=== PATIENT | female | born 1945 | race Caucasian/White ===

== ENCOUNTER 2020-07-15 15:29 | Inpatient (IN) | payer MEDICARE, BC ==
[2020-07-15] MEDS ORDERED: SODIUM CHLORIDE 0.9% 1,000 ML IV STA (15:59)
[2020-07-15] MEDS ORDERED: SODIUM CHLORIDE 0.9% 500 ML 500 ML IV STA (15:59)
[2020-07-15] MEDS ORDERED: ACETAMINOPHEN TAB 500 MG TAB PO STA (15:59)
--- NOTE | 2020-07-15 16:04 | ED ---
General Adult HPI - General Chief complaint: Weakness Stated complaint: Weakness Time Seen by Provider: 07/15/20 15:53 Source: patient, EMS, RN notes reviewed, old records reviewed Mode of arrival: EMS Limitations: no limitations - History of Present Illness Initial comments: 74-year-old female presenting for evaluation of cough, fever, increased weakne ss. Patient was noted to be hypoxic by EMS at 89%. She is 8 days postop right hip replacement at an outside facility. She began having worsening dyspnea and cough over the past several days. She does report subjective fever at home. Denies lower extremity swelling. She denies any pain swelling or erythema at the incision site of the right hip. - Related Data Allergies Allergy/AdvReac Type Severity Reaction Status Date / Time ciprofloxacin [From Cipro] Allergy Unknown Verified 07/15/20 15:38 clarithromycin [From Biaxin] Allergy Unknown Verified 07/15/20 15:38 ibuprofen [From Motrin] Allergy Unknown Verified 07/15/20 15:38 Sulfa (Sulfonamide Allergy Unknown Verified 07/15/20 15:38 Antibiotics) Review of Systems ROS Statement: Those systems with pertinent positive or pertinent negative responses have been documented in the HPI. ROS Other: All systems not noted in ROS Statement are negative. Past Medical History Past Medical History: Hyperlipidemia, Hypertension History of Any Multi-Drug Resistant Organisms: None Reported Past Surgical History: Appendectomy, Orthopedic Surgery Additional Past Surgical History / Comment(s): gastric bypass Past Psychological History: Depression Smoking Status: Former smoker Past Alcohol Use History: Rare Past Drug Use History: None Reported General Exam Limitations: no limitations General appearance: alert, in no apparent distress Head exam: Present: atraumatic, normocephalic Eye exam: Present: normal appearance, PERRL ENT exam: Present: normal exam Neck exam: Present: normal inspection. Absent: tenderness, meningismus Respiratory exam: Present: respiratory distress, decreased breath sounds Cardiovascular Exam: Present: regular rate, normal rhythm GI/Abdominal exam: Present: soft. Absent: distended, tenderness, guarding Extremities exam: Present: other (Right hip dressing is clean dry and intact, no surrounding erythema, no tenderness, no purulent drainage). Absent: pedal edema, calf tenderness Neurological exam: Present: alert, oriented X3, CN II-XII intact. Absent: motor sensory deficit Psychiatric exam: Present: normal affect, normal mood Skin exam: Present: warm, dry, intact. Absent: cyanosis, diaphoretic Course Vital Signs 07/15/20 07/15/20 07/15/20 15:38 15:49 17:00 Temperature 100.6 F H Pulse Rate 92 84 Respiratory 22 18 Rate Blood Pressure 127/71 129/67 O2 Sat by Pulse 89 L 95 98 Oximetry 07/15/20 18:00 Temperature 98.9 F Pulse Rate 81 Respiratory 18 Rate Blood Pressure 119/67 O2 Sat by Pulse 94 L Oximetry EKG Findings - EKG Comments: EKG Findings:: EKG: Sinus rhythm with PAC, no ST segment elevation, there is additionally PVC rate of 90, NJ interval 150, QRS duration 82, QTC [address] segment elevation. Medical Decision Making - Medical Decision Making 74-year-old female with cough, fever, generalized weakness, chest x-ray showing a right apical pneumonia. Patient has mildly elevated white blood cell count at 12.1, electrolytes are within normal limits. She has urinalysis which shows 30 white blood cells. Suspect pneumonia or urinary tract infection. There is no signs of surgical site infection. She started on antibiotics including ceftriaxone and azithromycin. Additionally a coronavirus test will be sent. Patient will be admitted for IV antibiotics, case is discussed with Dr. jerez who will admit. - Lab Data Result diagrams: 07/15/20 16:18 07/15/20 16:18 Lab Results 07/15/20 07/15/20 07/15/20 Range/Units 16:18 16:18 16:18 WBC 12.1 H (3.8-10.6) k/uL RBC 3.54 L (3.80-5.40) m/uL Hgb 10.1 L (11.4-16.0) gm/dL Hct 32.2 L (34.0-46.0) % MCV 90.9 (80.0-100.0) fL MCH 28.6 (25.0-35.0) pg MCHC 31.5 (31.0-37.0) g/dL RDW 13.3 (11.5-15.5) % Plt Count 451 H (150-450) k/uL Neutrophils % 76 % Lymphocytes % 13 % Monocytes % 6 % Eosinophils % 5 % Basophils % 0 % Neutrophils # 9.2 H (1.3-7.7) k/uL Lymphocytes # 1.5 (1.0-4.8) k/uL Monocytes # 0.7 (0-1.0) k/uL Eosinophils # 0.6 (0-0.7) k/uL Basophils # 0.0 (0-0.2) k/uL PT 9.9 (9.0-12.0) sec INR 0.9 (<1.2) APTT 29.5 (22.0-30.0) sec Sodium 136 L (137-145) mmol/L Potassium 4.1 (3.5-5.1) mmol/L Chloride 104 (98-107) mmol/L Carbon Dioxide 27 (22-30) mmol/L Anion Gap 5 mmol/L BUN 16 (7-17) mg/dL Creatinine 0.72 (0.52-1.04) mg/dL Est GFR (CKD-EPI)AfAm >90 (>60 ml/min/1.73 sqM) Est GFR (CKD-EPI)NonAf 84 (>60 ml/min/1.73 sqM) Glucose 95 (74-99) mg/dL Plasma Lactic Acid Stephan (0.7-2.0) mmol/L Calcium 8.4 (8.4-10.2) mg/dL Magnesium 1.5 L (1.6-2.3) mg/dL Total Bilirubin 0.9 (0.2-1.3) mg/dL AST 29 (14-36) U/L ALT 15 (4-34) U/L Alkaline Phosphatase 137 H (38-126) U/L Troponin I (0.000-0.034) ng/mL Total Protein 5.6 L (6.3-8.2) g/dL Albumin 2.7 L (3.5-5.0) g/dL Urine Color Urine Appearance (Clear) Urine pH (5.0-8.0) Ur Specific Eden (1.001-1.035) Urine Protein (Negative) Urine Glucose (UA) (Negative) Urine Ketones (Negative) Urine Blood (Negative) Urine Nitrite (Negative) Urine Bilirubin (Negative) Urine Urobilinogen (<2.0) mg/dL Ur Leukocyte Esterase (Negative) Urine RBC (0-5) /hpf Urine WBC (0-5) /hpf Ur Squamous Epith Cells (0-4) /hpf Urine Bacteria (None) /hpf Urine Mucus (None) /hpf 07/15/20 07/15/20 07/15/20 Range/Units 16:18 16:18 16:56 WBC (3.8-10.6) k/uL RBC (3.80-5.40) m/uL Hgb (11.4-16.0) gm/dL Hct (34.0-46.0) % MCV (80.0-100.0) fL MCH (25.0-35.0) pg MCHC (31.0-37.0) g/dL RDW (11.5-15.5) % Plt Count (150-450) k/uL Neutrophils % % Lymphocytes % % Monocytes % % Eosinophils % % Basophils % % Neutrophils # (1.3-7.7) k/uL Lymphocytes # (1.0-4.8) k/uL Monocytes # (0-1.0) k/uL Eosinophils # (0-0.7) k/uL Basophils # (0-0.2) k/uL PT (9.0-12.0) sec INR (<1.2) APTT (22.0-30.0) sec Sodium (137-145) mmol/L Potassium (3.5-5.1) mmol/L Chloride (98-107) mmol/L Carbon Dioxide (22-30) mmol/L Anion Gap mmol/L BUN (7-17) mg/dL Creatinine (0.52-1.04) mg/dL Est GFR (CKD-EPI)AfAm (>60 ml/min/1.73 sqM) Est GFR (CKD-EPI)NonAf (>60 ml/min/1.73 sqM) Glucose (74-99) mg/dL Plasma Lactic Acid Stephan 1.0 (0.7-2.0) mmol/L Calcium (8.4-10.2) mg/dL Magnesium (1.6-2.3) mg/dL Total Bilirubin (0.2-1.3) mg/dL AST (14-36) U/L ALT (4-34) U/L Alkaline Phosphatase (38-126) U/L Troponin I <0.012 (0.000-0.034) ng/mL Total Protein (6.3-8.2) g/dL Albumin (3.5-5.0) g/dL Urine Color Yellow Urine Appearance Cloudy H (Clear) Urine pH 5.5 (5.0-8.0) Ur Specific Eden 1.027 (1.001-1.035) Urine Protein Trace H (Negative) Urine Glucose (UA) Negative (Negative) Urine Ketones Negative (Negative) Urine Blood Small H (Negative) Urine Nitrite Positive H (Negative) Urine Bilirubin Negative (Negative) Urine Urobilinogen 3.0 (<2.0) mg/dL Ur Leukocyte Esterase Large H (Negative) Urine RBC 1 (0-5) /hpf Urine WBC 30 H (0-5) /hpf Ur Squamous Epith Cells 8 H (0-4) /hpf Urine Bacteria Many H (None) /hpf Urine Mucus Rare H (None) /hpf Disposition Clinical Impression: Pneumonia Disposition[facility] Condition: Stable Is patient prescribed a controlled substance at d/c from ED?: No Referrals: Nonstaff,Physician [REFERRING] - 1-2 days Decision to Admit Reason: Admit from EC Decision Date: 07/15/20 Decision Time: 18:35
[2020-07-15 16:35] LABS: Basophils % (A) 0 %; Eosinophils # (A) 0.6 k/uL (0-0.7); Eosinophils % (A) 5 %; HCT 32.2 % (34.0-46.0); HGB 10.1 gm/dL (11.4-16.0); Lymphocytes # (A) 1.5 k/uL (1.0-4.8); Lymphocytes % (A) 13 %; MCH 28.6 pg (25.0-35.0); MCHC 31.5 g/dL (31.0-37.0); MCV 90.9 fL (80.0-100.0); Mean Platelet Volume 7.3; Monocytes # (A) 0.7 k/uL (0-1.0); Monocytes % (A) 6 %; Neutrophils # (A) 9.2 k/uL (1.3-7.7); Neutrophils % (A) 76 %; Platelet Count 451 k/uL (150-450); RBC 3.54 m/uL (3.80-5.40); RDW 13.3 % (11.5-15.5); WBC 12.1 k/uL (3.8-10.6)
--- NOTE | 2020-07-15 16:44 | XR ---
EXAMINATION TYPE: XR chest 2V DATE OF EXAM: 07/15/2020 COMPARISON: None INDICATION: Weakness short of breath TECHNIQUE: Frontal and lateral views of the chest are obtained. FINDINGS: The heart size is normal. The pulmonary vasculature is normal. There is a right apical infiltrate. Correlate for pneumonia. Consider atypical pneumonia. Follow-up i s recommended.. IMPRESSION: 1. Right apical infiltrate. Correlate for pneumonia and atypical pneumonia.
[2020-07-15 16:45] LABS: ALT 15 U/L (4-34); AST 29 U/L (14-36); African American GFR (CKD) >90 (>60 ml/min/1.73 sqM); Albumin 2.7 g/dL (3.5-5.0); Alkaline Phosphatase 137 U/L (38-126); Anion Gap 5 mmol/L; Blood Urea Nitrogen 16 mg/dL (7-17); Calcium 8.4 mg/dL (8.4-10.2); Carbon Dioxide 27 mmol/L (22-30); Chloride 104 mmol/L (98-107); Glucose 95 mg/dL (74-99); Magnesium 1.5 mg/dL (1.6-2.3); Non-African American GFR(CKD) 84 (>60 ml/min/1.73 sqM); Potassium 4.1 mmol/L (3.5-5.1); Sodium 136 mmol/L (137-145); Total Bilirubin 0.9 mg/dL (0.2-1.3); Total Protein 5.6 g/dL (6.3-8.2)
[2020-07-15 16:49] LABS: INR 0.9 (<1.2); Partial Thromboplastin Time 29.5 sec (22.0-30.0); Prothrombin Time 9.9 sec (9.0-12.0)
[2020-07-15 17:06] LABS: Appearance,Urine Cloudy (Clear); Bacteria,Urine Many /hpf; Bilirubin,Urine Negative (Negative); Blood,Urine Small (Negative); Color,Urine Yellow; Glucose,Urine (UA) Negative (Negative); Ketones,Urine Negative (Negative); Leukocyte Esterase,Urine Large (Negative); Mucus,Urine Rare /hpf; Nitrite,Urine Positive (Negative); PH, Urine 5.5 (5.0-8.0); Protein,Urine Trace (Negative); RBC,Urine 1 /hpf (0-5); Specific Gravity,Urine 1.027 (1.001-1.035); Squamous Epithelial Cell,Urine 8 /hpf (0-4); WBC,Urine 30 /hpf (0-5)
[2020-07-15] MEDS ORDERED: AZITHROMYCIN 500 MG in SODIUM CHLORIDE 0.9% 250 ML IVPB STA (17:14)
[2020-07-15] MEDS ORDERED: cefTRIAXone IN SWFI 1,000 MG/10 ML SYRINGE IVP STA (17:14)
[2020-07-15] MEDS ORDERED: HYDROcodone/APAP 10-325MG 1 EACH TAB PO STA (17:59)
--- NOTE | 2020-07-15 18:13 | CT ---
EXAMINATION TYPE: CT angio chest DATE OF EXAM: 07/15/2020 COMPARISON: None HISTORY: Difficulty breathing. CT DLP: 584.7 mGycm Automated exposure control for dose reduction was used. CONTRAST: Performed with IV Contrast, patient injected with 100 mL of Isovue 370. There are 3-D post processed images. There is some patchy groundglass interstitial infiltrates in the upper lobes bilaterally. There is no evidence of a pulmonary mass. There is no pleural effusion. Heart is borderline enlarged. There is n o pericardial effusion. There are no hilar masses. There is no mediastinal adenopathy. There is mild emphysematous changes in the upper lobes. There are surgical clips apparently from gastric bariatric surgery. I see no filling defects in the pulmonary arteries. Thoracic aorta is intact without evidence of aneu rysm or dissection. The bony thorax is intact. There is spurring of the endplates in the mid thoracic spine and 20% mild wedging of one mid thoracic vertebra that appears old. IMPRESSION: No evidence of pulmonary embolism. COPD and bilateral upper lobe patchy groundglass pulmonary interstitial infiltrates. No suspicious pu lmonary mass. Infiltrates consistent with inflammatory disease.
[2020-07-15] MEDS ORDERED: ACETAMINOPHEN TAB 325 MG TAB PO PRN (18:28)
[2020-07-15] MEDS ORDERED: NALOXONE 0.4 MG/ML 1 ML VIAL IV PRN (18:28)
[2020-07-15] MEDS ORDERED: MELATONIN 5 MG TABLET PO PRN (22:00)
[2020-07-15] MEDS ORDERED: SENNOSIDES 8.6 MG TAB PO PRN (22:00)
[2020-07-15] MEDS: FLUoxetine HCL 20 MG CAP PO SCH (22:14)
[2020-07-15] MEDS: ATORVASTATIN 20 MG TAB PO SCH (22:14)
[2020-07-15] MEDS: GABAPENTIN 300 MG CAP PO SCH (22:14)
[2020-07-15] MEDS: APIXABAN 2.5 MG TABLET PO SCH (22:14)
[2020-07-15] MEDS: METOPROLOL TARTRATE 50 MG TAB PO SCH (22:14)
[2020-07-16] MEDS ORDERED: ONDANSETRON 4 MG/2 ML VIAL IVP PRN
[2020-07-16] MEDS: HYDROcodone/APAP 10-325MG 1 EACH TAB PO PRN ×3 (04:30→20:55)
[2020-07-16] MEDS: GABAPENTIN 300 MG CAP PO SCH ×2 (07:40→21:04)
[2020-07-16] MEDS: CHOLECALCIFEROL 1,000 UNIT TAB PO SCH (07:40)
[2020-07-16] MEDS: PANTOPRAZOLE 40 MG TABLET PO SCH (07:41)
[2020-07-16] MEDS: FLUoxetine HCL 20 MG CAP PO SCH ×2 (07:41→21:04)
[2020-07-16] MEDS: APIXABAN 2.5 MG TABLET PO SCH ×2 (07:41→20:55)
[2020-07-16] MEDS: lisinopriL 20 MG TAB PO SCH (07:41)
[2020-07-16] MEDS: METOPROLOL TARTRATE 50 MG TAB PO SCH ×2 (07:41→20:55)
[2020-07-16] MEDS: amLODIPine 5 MG TAB PO SCH (07:41)
[2020-07-16] MEDS: MULTIVITAMINS, THERA 1 EACH TAB PO SCH (07:42)
[2020-07-16] MEDS ORDERED: polyethylene glycoL 3350 17 GM POWD.PACK PO PRN (09:00)
[2020-07-16] MEDS ORDERED: DOCUSATE 100 MG CAP PO PRN (09:00)
[2020-07-16 11:33] LABS: Basophils % (A) 0 %; Eosinophils # (A) 0.5 k/uL (0-0.7); Eosinophils % (A) 7 %; HCT 29.2 % (34.0-46.0); HGB 9.1 gm/dL (11.4-16.0); Hypochromasia Slight; Lymphocytes # (A) 1.2 k/uL (1.0-4.8); Lymphocytes % (A) 16 %; MCHC 31.3 g/dL (31.0-37.0); MCV 92.6 fL (80.0-100.0); Mean Platelet Volume 6.9; Monocytes # (A) 0.4 k/uL (0-1.0); Monocytes % (A) 6 %; Neutrophils # (A) 5.3 k/uL (1.3-7.7); Neutrophils % (A) 70 %; Platelet Count 412 k/uL (150-450); RBC 3.15 m/uL (3.80-5.40); RDW 13.3 % (11.5-15.5); WBC 7.6 k/uL (3.8-10.6)
[2020-07-16 12:08] LABS: D-Dimer 1.28 mg/L FEU (<0.60)
[2020-07-16] MEDS ORDERED: IPRATROPIUM-ALBUTEROL 3 ML NEB INHALATION PRN (13:27)
[2020-07-16] MEDS: predniSONE 20 MG TAB PO SCH (13:48)
[2020-07-16] MEDS ORDERED: FUROSEMIDE 10 MG/ML 4 ML VIAL IV STA (14:18)
--- NOTE | 2020-07-16 14:20 | P.CNPUL ---
History of Present Illness Consult date: 07/16/20 Requesting physician: Geoffrey Jordan Reason for consult: dyspnea, cough, hypoxemia (hypoxic respiratory failure), pneumonia, abnormal CXR/CT Chief complaint: Cough, fever, weakness, and hypoxemia History of present illness: 74-year-old white female patient with a recent history of right hip replacement at [facility] who is staying in this area with her sister for recovery. Patient has a past medical history significant for hypertension, hyperlipidemia, she is a former smoker, she has had a gastric bypass surgery in the past, and history of depression. She presented to the emergency department on 07/15/2020 evaluation of fever, cough, increased weakness, EMS transported the patient to the hospital and she was noted to be hypoxic with a pulse ox of 89% on room air. Patient's onset of symptoms was several days ago, patient denies any lower extremity swelling, or pain in the calves. Her right hip incision is clean dry and intact, without evidence of swelling or erythema. Chest x-ray showed right apical infiltrate. Labs did not show any significant leukocytosis, with white blood cell, only at 12.1, hemoglobin is 10.1, d-dimer was 1.8, INR 0.9, electrolytes and renal profile were unremarkable, troponin was negative at less than 0.012, LFTs are within normal limits, except for alk phos at 137, urinalysis showed nitrites, small amount of blood, large amount of leuk trase, and increased white blood cell count and many bacteria consistent with urinary tract infection, proBNP was 3640. CTA chest showed no evidence of pulmonary embolism, bilateral upper lobe patchy groundglass pulmonary interstitial infiltrates, no suspicious pulmonary mass. COVID 19 PCR was negative. EKG showed sinus rhythm with PACs with apparent conduction, and nonspecific ST and T-wave abnormality. Patient was started on empiric antibiotics in the form of azithromycin and Rocephin, patient is on oral anticoagulation form of Eliquis possibly following her recent right hip surgery. She is awake, appears to be in no acute distress, afebrile, and 4 L of oxygen a pulse ox 96% Review of Systems All systems: negative Constitutional: Reports weakness, Denies chills, Denies fever Eyes: denies blurred vision, denies pain Ears, nose, mouth and throat: Denies headache, Denies sore throat Cardiovascular: Denies chest pain, Denies shortness of breath Respiratory: Reports cough, Reports cough with sputum, Reports dyspnea Gastrointestinal: Denies abdominal pain, Denies diarrhea, Denies nausea, Denies vomiting Genitourinary: Denies dysuria, Denies hematuria Musculoskeletal: Denies myalgias Integumentary: Denies pruritus, Denies rash Neurological: Denies numbness, Denies weakness Psychiatric: Denies anxiety, Denies depression Endocrine: Denies fatigue, Denies weight change Past Medical History Past Medical History: Hyperlipidemia, Hypertension History of Any Multi-Drug Resistant Organisms: None Reported Past Surgical History: Appendectomy, Orthopedic Surgery Additional Past Surgical History / Comment(s): gastric bypass, lumbar fusion (L5) in 2019, right hip replacement Past Anesthesia/Blood Transfusion Reactions: No Reported Reaction Past Psychological History: Depression Smoking Status: Former smoker Past Alcohol Use History: Rare Additional Past Alcohol Use History / Comment(s): Patient states she rarely drinks - states she is a social drinker Past Drug Use History: None Reported - Past Family History Father History Unknown: Yes Medications and Allergies Home Medications Medication Instructions Recorded Confirmed Type Acetaminophen Tab [Tylenol Tab] 500 - 1,000 mg PO Q4-6H PRN 07/15/20 07/15/20 History Apixaban [Eliquis] 2.5 mg PO BID 07/15/20 07/15/20 History Atorvastatin [Lipitor] 20 mg PO HS 07/15/20 07/15/20 History Cholecalciferol [Vitamin D3 (25 2,000 unit PO DAILY 07/15/20 07/15/20 History Mcg = 1000 Iu)] Docusate [Colace] 100 mg PO BID PRN 07/15/20 07/15/20 History FLUoxetine HCL [PROzac] 20 mg PO HS 07/15/20 07/15/20 History FLUoxetine HCL [PROzac] 40 mg PO DAILY 07/15/20 07/15/20 History Fexofenadine HCl [Sushila Allergy] 180 mg PO DAILY 07/15/20 07/15/20 History Fluticasone/Vilanterol [Breo 1 puff INHALATION RT-DAILY PRN 07/15/20 07/15/20 History Ellipta 100-25 Mcg Inhaler] Gabapentin 300 mg PO DAILY 07/15/20 07/15/20 History Gabapentin 600 mg PO HS 07/15/20 07/15/20 History HYDROcodone/APAP 10-325MG [Chula 1 - 2 tab PO Q4-6H PRN 07/15/20 07/15/20 History 10-325] Lansoprazole 30 mg PO DAILY 07/15/20 07/15/20 History Melatonin 5 mg PO HS PRN 07/15/20 07/15/20 History Metoprolol Tartrate [Lopressor] 50 mg PO BID 07/15/20 07/15/20 History Multivitamins, Thera [Multivitamin 1 tab PO DAILY 07/15/20 07/15/20 History (formulary)] Ondansetron HCl [Zofran] 8 mg PO TID PRN 07/15/20 07/15/20 History Sennosides [Senna] 17.2 mg PO DAILY PRN 07/15/20 07/15/20 History Vitamin B-12(Unknown Dose) 1 tab PO DAILY 07/15/20 07/15/20 History amLODIPine [Norvasc] 5 mg PO DAILY 07/15/20 07/15/20 History lisinopriL 20 mg PO DAILY 07/15/20 07/15/20 History polyethylene glycoL 3350 [Miralax] 17 gm PO DAILY PRN 07/15/20 07/15/20 History Allergies Allergy/AdvReac Type Severity Reaction Status Date / Time ciprofloxacin [From Cipro] Allergy Unknown Verified 07/15/20 18:51 clarithromycin [From Biaxin] Allergy Unknown Verified 07/15/20 18:51 ibuprofen [From Motrin] Allergy Unknown Verified 07/15/20 18:51 Sulfa (Sulfonamide Allergy Unknown Verified 07/15/20 18:51 Antibiotics) Physical Exam Vitals: Vital Signs Temp Pulse Pulse Resp BP BP Pulse Ox 07/16/20 11:39 96 07/16/20 08:00 67 16 07/16/20 07:00 98.5 F 67 16 136/74 97 07/16/20 03:50 20 07/16/20 02:05 98.6 F 79 127/62 95 07/15/20 23:38 20 07/15/20 20:27 98.3 F 84 130/68 93 L 07/15/20 20:00 98.4 F 76 20 125/84 96 07/15/20 19:00 98.6 F 77 18 128/53 96 07/15/20 18:00 98.9 F 81 18 119/67 94 L 07/15/20 17:00 84 18 129/67 98 07/15/20 15:49 95 07/15/20 15:38 100.6 F H 92 22 127/71 89 L Intake and Output 07/15/20 07/16/20 07/16/20 22:59 06:59 14:59 Intake Total 600 Balance 600 Intake: Intake, IV Titration 600 Amount Sodium Chloride 0.9% 1, 600 000 ml @ 130 mls/hr IV . Q7H42M STA Rx#:[id number] Other: Voiding Method Toilet Toilet # Voids 2 2 Weight 93.894 kg GENERAL EXAM: Alert, very pleasant, 74-year-old white female, appears pale, but no acute distress currently on 4 L of oxygen a pulse ox of 97%, comfortable in no apparent distress. HEAD: Normocephalic/atraumatic. EYES: Normal reaction of pupils, equal size. Conjunctiva pink, sclera white. NOSE: Clear with pink turbinates. THROAT: No erythema or exudates. NECK: No masses, no JVD, no thyroid enlargement, no adenopathy. CHEST: No chest wall deformity. Symmetrical expansion. LUNGS: Equal air entry with no crackles, wheeze, rhonchi or dullness. CVS: Regular rate and rhythm, normal S1 and S2, no gallops, no murmurs, no rubs ABDOMEN: Soft, nontender. No hepatosplenomegaly, normal bowel sounds, no guarding or rigidity. EXTREMITIES: No clubbing, no edema, no cyanosis, 2+ pulses and upper and lower extremities. MUSCULOSKELETAL: Muscle strength and tone normal. SPINE: No scoliosis or deformity SKIN: No rashes CENTRAL NERVOUS SYSTEM: Alert and oriented -3. No focal deficits, tone is normal in all 4 extremities. PSYCHIATRIC: Alert and oriented -3. Appropriate affect. Intact judgment and insight. Results - Laboratory Findings CBC and BMP: 07/16/20 10:57 07/15/20 16:18 PT/INR, D-dimer PT 9.9 sec (9.0-12.0) 07/15/20 16:18 INR 0.9 (<1.2) 07/15/20 16:18 D-Dimer 1.28 mg/L FEU (<0.60) H 07/16/20 10:57 Abnormal lab findings: Abnormal Labs 07/15/20 07/15/20 07/15/20 16:18 16:18 16:56 WBC 12.1 H RBC 3.54 L Hgb 10.1 L Hct 32.2 L Plt Count 451 H Neutrophils # 9.2 H Fibrinogen D-Dimer Sodium 136 L Magnesium 1.5 L Alkaline Phosphatase 137 H Total Protein 5.6 L Albumin 2.7 L Urine Appearance Cloudy H Urine Protein Trace H Urine Blood Small H Urine Nitrite Positive H Ur Leukocyte Esterase Large H Urine WBC 30 H Ur Squamous Epith Cells 8 H Urine Bacteria Many H Urine Mucus Rare H 07/16/20 07/16/20 10:57 10:57 WBC RBC 3.15 L Hgb 9.1 L Hct 29.2 L Plt Count Neutrophils # Fibrinogen 630 H D-Dimer 1.28 H Sodium Magnesium Alkaline Phosphatase Total Protein Albumin Urine Appearance Urine Protein Urine Blood Urine Nitrite Ur Leukocyte Esterase Urine WBC Ur Squamous Epith Cells Urine Bacteria Urine Mucus - Diagnostic Findings Chest x-ray: report reviewed, image reviewed CT scan - chest: report reviewed, image reviewed Additional studies: EKG reviewed Assessment and Plan Plan: Assessment: #1. Acute hypoxic respiratory failure related to possibility of sepsis related to underlying urinary tract infection #2. Bilateral upper lobe patchy groundglass pulmonary infiltrates, COVID 19 ruled out, this possibly related to inflammatory changes, possibility of fluid is not excluded. #3. Elevated d-dimer, pulmonary embolism was ruled out with CT chest #4. Recent history of right hip replacement at [facility], and patient was staying with her sister who lives locally following her discharge #5. Hypertension #6. Hyperlipidemia #7. History of gastric bypass surgery #8. Former smoker, currently in remission #9. Underlying history of COPD Plan: COVID 19 was ruled out, urinalysis shows evidence of urinary tract infection, continue current antibiotic coverage, patient has been afebrile. Continue nebulized bronchodilators, continue oral prednisone, continue oral anticoagulants, CT chest has been reviewed, showing possibility of inflammatory changes or fluid, we'll stop the IV fluids, may consider diuretics, echocardiogram is pending. Follow-up chest x-ray in the morning I performed a history & physical examination of the patient and discussed their management with my nurse practitioner, Soledad Luther. I reviewed the nurse practitioner's note and agree with the documented findings and plan of care. Lung sounds are positive for diminished breath sounds. The findings and the impression was discussed with the patient. I attest to the documentation by the nurse practitioner. Time with Patient: Greater than 30
--- NOTE | 2020-07-16 14:22 | P.HPIM ---
History of Present Illness Patient was on a 4-year-old the female came in with compensative shortness of breath and patient was bit hypoxic patient did smoke does have history of COPD does have wheezing on exam patient did have low-grade fever CT of the chest was obtained which showed some bilateral groundglass a paced is that is no lobar pneumonic infiltrate. There was no evidence of pulmonary embolism. Patient is comparing of cough for about the 4-5 days with the dizziness sputum production. Patient doesn't use any onset patient is present in 4 L of oxygen. Patient used to smoke in the past and quit a few weeks ago. Review of Systems REVIEW OF SYSTEMS: CONSTITUTIONAL: No fever, no malaise, no fatigue. HEENT: No recent visual problems or hearing problems. Denied any sore throat. CARDIOVASCULAR: No chest pain, orthopnea, PND, no palpitations, no syncope. PULMONARY: As mentioned in HPI GASTROINTESTINAL: No diarrhea, no nausea, no vomiting, no abdominal pain. NEUROLOGICAL: No headaches, no weakness, no numbness. HEMATOLOGICAL: Denies any bleeding or petechiae. GENITOURINARY: Denies any burning micturition, frequency, or urgency. MUSCULOSKELETAL/RHEUMATOLOGICAL: Denies any joint pain, swelling, or any muscle pain. ENDOCRINE: Denies any polyuria or polydipsia. The rest of the 14-point review of systems is negative. Past Medical History Past Medical History: Hyperlipidemia, Hypertension History of Any Multi-Drug Resistant Organisms: None Reported Past Surgical History: Appendectomy, Orthopedic Surgery Additional Past Surgical History / Comment(s): gastric bypass, lumbar fusion (L5) in 2019 Past Anesthesia/Blood Transfusion Reactions: No Reported Reaction Past Psychological History: Depression Smoking Status: Former smoker Past Alcohol Use History: Rare Additional Past Alcohol Use History / Comment(s): Patient states she rarely drinks - states she is a social drinker Past Drug Use History: None Reported - Past Family History Father History Unknown: Yes Medications and Allergies Home Medications Medication Instructions Recorded Confirmed Type Acetaminophen Tab [Tylenol Tab] 500 - 1,000 mg PO Q4-6H PRN 07/15/20 07/15/20 History Apixaban [Eliquis] 2.5 mg PO BID 07/15/20 07/15/20 History Atorvastatin [Lipitor] 20 mg PO HS 07/15/20 07/15/20 History Cholecalciferol [Vitamin D3 (25 2,000 unit PO DAILY 07/15/20 07/15/20 History Mcg = 1000 Iu)] Docusate [Colace] 100 mg PO BID PRN 07/15/20 07/15/20 History FLUoxetine HCL [PROzac] 20 mg PO HS 07/15/20 07/15/20 History FLUoxetine HCL [PROzac] 40 mg PO DAILY 07/15/20 07/15/20 History Fexofenadine HCl [Sushila Allergy] 180 mg PO DAILY 07/15/20 07/15/20 History Fluticasone/Vilanterol [Breo 1 puff INHALATION RT-DAILY PRN 07/15/20 07/15/20 History Ellipta 100-25 Mcg Inhaler] Gabapentin 300 mg PO DAILY 07/15/20 07/15/20 History Gabapentin 600 mg PO HS 07/15/20 07/15/20 History HYDROcodone/APAP 10-325MG [[facility] 1 - 2 tab PO Q4-6H PRN 07/15/20 07/15/20 History 10-325] Lansoprazole 30 mg PO DAILY 07/15/20 07/15/20 History Melatonin 5 mg PO HS PRN 07/15/20 07/15/20 History Metoprolol Tartrate [Lopressor] 50 mg PO BID 07/15/20 07/15/20 History Multivitamins, Thera [Multivitamin 1 tab PO DAILY 07/15/20 07/15/20 History (formulary)] Ondansetron HCl [Zofran] 8 mg PO TID PRN 07/15/20 07/15/20 History Sennosides [Senna] 17.2 mg PO DAILY PRN 07/15/20 07/15/20 History Vitamin B-12(Unknown Dose) 1 tab PO DAILY 07/15/20 07/15/20 History amLODIPine [Norvasc] 5 mg PO DAILY 07/15/20 07/15/20 History lisinopriL 20 mg PO DAILY 07/15/20 07/15/20 History polyethylene glycoL 3350 [Miralax] 17 gm PO DAILY PRN 07/15/20 07/15/20 History Allergies Allergy/AdvReac Type Severity Reaction Status Date / Time ciprofloxacin [From Cipro] Allergy Unknown Verified 07/15/20 18:51 clarithromycin [From Biaxin] Allergy Unknown Verified 07/15/20 18:51 ibuprofen [From Motrin] Allergy Unknown Verified 07/15/20 18:51 Sulfa (Sulfonamide Allergy Unknown Verified 07/15/20 18:51 Antibiotics) Physical Exam Vitals: Vital Signs Temp Pulse Pulse Resp BP BP Pulse Ox 07/16/20 11:39 96 07/16/20 08:00 67 16 07/16/20 07:00 98.5 F 67 16 136/74 97 07/16/20 03:50 20 07/16/20 02:05 98.6 F 79 127/62 95 07/15/20 23:38 20 07/15/20 20:27 98.3 F 84 130/68 93 L 07/15/20 20:00 98.4 F 76 20 125/84 96 07/15/20 19:00 98.6 F 77 18 128/53 96 07/15/20 18:00 98.9 F 81 18 119/67 94 L 07/15/20 17:00 84 18 129/67 98 07/15/20 15:49 95 07/15/20 15:38 100.6 F H 92 22 127/71 89 L Intake and Output 07/15/20 07/16/20 07/16/20 22:59 06:59 14:59 Intake Total 600 Balance 600 Intake: Intake, IV Titration 600 Amount Sodium Chloride 0.9% 1, 600 000 ml @ 130 mls/hr IV . Q7H42M [facility] Rx#:[id number] Other: Voiding Method Toilet Toilet # Voids 2 2 Weight 93.894 kg PHYSICAL EXAMINATION: GENERAL: The patient is alert and oriented x3, not in any acute distress. Well developed, well nourished. HEENT: Pupils are round and equally reacting to light. EOMI. No scleral icterus. No conjunctival pallor. Normocephalic, atraumatic. No pharyngeal erythema. No thyromegaly. CARDIOVASCULAR: S1 and S2 present. No murmurs, rubs, or gallops. PULMONARY: Does have extensive grade 3 wheezing with decreased air entry into bilateral lung chang. ABDOMEN: Soft, nontender, nondistended, normoactive bowel sounds. No palpable organomegaly. MUSCULOSKELETAL: No joint swelling or deformity. EXTREMITIES: No cyanosis, clubbing, or pedal edema. NEUROLOGICAL: Gross neurological examination did not reveal any focal deficits. SKIN: No rashes. Results CBC & Chem 7: 07/16/20 10:57 07/15/20 16:18 Labs: Abnormal Lab Results - Last 24 Hours (Table) 07/15/20 07/15/20 07/15/20 Range/Units 16:18 16:18 16:56 WBC 12.1 H (3.8-10.6) k/uL RBC 3.54 L (3.80-5.40) m/uL Hgb 10.1 L (11.4-16.0) gm/dL Hct 32.2 L (34.0-46.0) % Plt Count 451 H (150-450) k/uL Neutrophils # 9.2 H (1.3-7.7) k/uL Fibrinogen (200-500) mg/dL D-Dimer (<0.60) mg/L FEU Sodium 136 L (137-145) mmol/L Magnesium 1.5 L (1.6-2.3) mg/dL Alkaline Phosphatase 137 H (38-126) U/L Total Protein 5.6 L (6.3-8.2) g/dL Albumin 2.7 L (3.5-5.0) g/dL Urine Appearance Cloudy H (Clear) Urine Protein Trace H (Negative) Urine Blood Small H (Negative) Urine Nitrite Positive H (Negative) Ur Leukocyte Esterase Large H (Negative) Urine WBC 30 H (0-5) /hpf Ur Squamous Epith Cells 8 H (0-4) /hpf Urine Bacteria Many H (None) /hpf Urine Mucus Rare H (None) /hpf 07/16/20 07/16/20 Range/Units 10:57 10:57 WBC (3.8-10.6) k/uL RBC 3.15 L (3.80-5.40) m/uL Hgb 9.1 L (11.4-16.0) gm/dL Hct 29.2 L (34.0-46.0) % Plt Count (150-450) k/uL Neutrophils # (1.3-7.7) k/uL Fibrinogen 630 H (200-500) mg/dL D-Dimer 1.28 H (<0.60) mg/L FEU Sodium (137-145) mmol/L Magnesium (1.6-2.3) mg/dL Alkaline Phosphatase (38-126) U/L Total Protein (6.3-8.2) g/dL Albumin (3.5-5.0) g/dL Urine Appearance (Clear) Urine Protein (Negative) Urine Blood (Negative) Urine Nitrite (Negative) Ur Leukocyte Esterase (Negative) Urine WBC (0-5) /hpf Ur Squamous Epith Cells (0-4) /hpf Urine Bacteria (None) /hpf Urine Mucus (None) /hpf Microbiology - Last 24 Hours (Table) 07/15/20 16:56 Urine Culture - Preliminary Urine,Voided Thrombosis Risk Factor Assmnt - Choose All That Apply Any of the Below Risk Factors Present?: Yes Each Factor Represents 1 point: History of prior major surgery (<1month), Obesity (BMI >25) Other Risk Factors: Yes Each Risk Factor Represents 2 Points: Age 61-74 years Thrombosis Risk Factor Assessment Total Risk Factor Score: 4 Thrombosis Risk Factor Assessment Level: Moderate Risk Assessment and Plan Plan: -Acute the hypoxic and probably acute hypercapnic respiratory failure: Secondary to to COPD exacerbation patient was started on steroids continue with inhalational treatments. Covid 19 PCR was ordered. There is no clear lobar infiltrate that is consistent with pneumonia but patient does have fever and some groundglass T's in the bilateral upper lobes pulmonology will evaluated the patient and possibility of atypical pneumonia because of which I'll continue with antibiotics patient is ALLERGIC to fluoroquinolones because of which patient is being continued on Rocephin as mycin. -Sepsis: Seconded to possibly pneumonia -Hyperlipidemia -Hypertension #Depression gastroesophageal reflux disease -Proximal A. fib presently sinus rhythm and rate controlled patient is an anti- correlation with intercourse
[2020-07-16] MEDS: IPRATROPIUM-ALBUTEROL 3 ML NEB INHALATION SCH ×2 (15:46→19:51)
[2020-07-16 18:49] LABS: African American GFR (CKD) 99.6 (60.0-200.0); Albumin 2.9 g/dL (3.80-4.90); Albumin/Globulin Ratio 1.45 (1.60-3.17); Anion Gap 7.7 mmol/L (4.00-12.00); BUN/Creat Ratio 17.14 Ratio (12.00-20.00); Calcium 7.9 mg/dL (8.7-10.3); Carbon Dioxide 25.3 mmol/L (21.6-31.8); Ferritin 416.9 ng/mL (10.0-291.0); Potassium 3.9 mmol/L (3.5-5.5); Total Bilirubin 0.3 mg/dL (0.3-1.2); Total Protein 4.9 g/dL (6.2-8.2)
[2020-07-16] MEDS: ATORVASTATIN 20 MG TAB PO SCH (20:55)
--- NOTE | 2020-07-17 06:44 | XR ---
EXAMINATION TYPE: XR chest 1V portable DATE OF EXAM: 07/17/2020 CLINICAL HISTORY: Difficulty breathing progress study. TECHNIQUE: Single AP portable upright view of the chest is obtained. COMPARISON: Chest x-ray and CTA chest from 2 days earlier FINDINGS: There is chronic parenchymal changes redemonstrated bilaterally with multifocal areas of g roundglass opacities more prominent anteriorly and more prominent in the right lung on recent CT. On x-ray opacities towards right lung apex and inferior lateral left upper lobe are best seen. No signif icant change from most recent x-ray. No pleural effusion or pneumothorax noted bilaterally. Cardiac s ilhouette size is stable and mildly enlarged. Osseous structures remain demineralized with degenerati ve change left glenohumeral joint. IMPRESSION: Overall stable findings, chronic changes and cardiomegaly with bilateral multifocal inf iltrates, Covid-19 infection should be excluded in the current clinical environment.
[2020-07-17] MEDS: PANTOPRAZOLE 40 MG TABLET PO SCH (08:27)
[2020-07-17] MEDS: HYDROcodone/APAP 10-325MG 1 EACH TAB PO PRN ×3 (08:27→20:50)
[2020-07-17] MEDS: METOPROLOL TARTRATE 50 MG TAB PO SCH ×2 (08:28→20:49)
[2020-07-17] MEDS: predniSONE 20 MG TAB PO SCH (08:28)
[2020-07-17] MEDS: CHOLECALCIFEROL 1,000 UNIT TAB PO SCH (08:28)
[2020-07-17] MEDS: FLUoxetine HCL 20 MG CAP PO SCH ×2 (08:28→20:50)
[2020-07-17] MEDS: GABAPENTIN 300 MG CAP PO SCH ×2 (08:29→20:49)
[2020-07-17] MEDS: amLODIPine 5 MG TAB PO SCH (08:29)
[2020-07-17] MEDS: MULTIVITAMINS, THERA 1 EACH TAB PO SCH (08:29)
[2020-07-17] MEDS: lisinopriL 20 MG TAB PO SCH (08:29)
[2020-07-17] MEDS: APIXABAN 2.5 MG TABLET PO SCH ×2 (08:29→20:50)
[2020-07-17] MEDS: IPRATROPIUM-ALBUTEROL 3 ML NEB INHALATION SCH ×4 (09:04→19:06)
[2020-07-17] MEDS: SYMBICORT 80-4.5 MCG INHALER INHALATION PRN (09:04)
[2020-07-17] MEDS: AZITHROMYCIN 500 MG TAB PO SCH (09:35)
--- NOTE | 2020-07-17 13:18 | P.PN ---
Subjective Progress Note Date: 07/17/20 Principal diagnosis: Acute hypoxic respiratory failure secondary to sepsis secondary to underlying urinary tract infection 74-year-old white female patient with a recent history of right hip replacement at [facility] who is staying in this area with her sister for recovery. Patient has a past medical history significant for hypertension, hyperlipidemia, she is a former smoker, she has had a gastric bypass surgery in the past, and history of depression. She presented to the emergency department on 07/15/2020 evaluation of fever, cough, increased weakness, EMS transported the patient to the hospital and she was noted to be hypoxic with a pulse ox of 89% on room air. Patient's onset of symptoms was several days ago, patient denies any lower extremity swelling, or pain in the calves. Her right hip incision is clean dry and intact, without evidence of swelling or erythema. Chest x-ray showed right apical infiltrate. Labs did not show any significant leukocytosis, with white blood cell, only at 12.1, hemoglobin is 10.1, d-dimer was 1.8, INR 0.9, electrolytes and renal profile were unremarkable, troponin was negative at less than 0.012, LFTs are within normal limits, except for alk phos at 137, urinalysis showed nitrites, small amount of blood, large amount of leuk trase, and increased white blood cell count and many bacteria consistent with urinary tract infection, proBNP was 3640. CTA chest showed no evidence of pulmonary embolism, bilateral upper lobe patchy groundglass pulmonary interstitial infiltrates, no suspicious pulmonary mass. COVID 19 PCR was negative. EKG showed sinus rhythm with PACs with apparent conduction, and nonspecific ST and T-wave abnormality. Patient was started on empiric antibiotics in the form of azithromycin and Rocephin, patient is on oral anticoagulation form of Eliquis possibly following her recent right hip surgery. She is awake, appears to be in no acute distress, afebrile, and 4 L of oxygen a pulse ox 96% The patient was seen today 07/17/2020 in follow-up on the regular medical floor. She is doing quite a bit better today. Currently sitting up in a chair at the bedside. Awake and alert in no acute distress. Maintaining good O2 saturations in the mid 90s on 2 L/m per nasal cannula. Chest x-ray reveals chronic changes and cardiomegaly with bilateral multifocal infiltrates, stable compared to previous. She's been afebrile. Hemodynamically stable. Urine culture positive for gram-negative bacilli. White count 7.6. Hemoglobin 9.1. D-dimer 1.28. Sodium 141. Potassium 3.9. Creatinine 0.7. LDH 358. C-reactive protein 25. Covid 19 screen negative. She is currently on DuoNeb inhalations, Symbicort, antibiotics in the form of azithromycin and ceftriaxone. Oral prednisone. Anticoagulated with Eliquis. Objective - Vital Signs Vital signs: Vital Signs Temp 98.2 F 07/17/20 07:00 Pulse 72 07/17/20 12:56 Resp 16 07/17/20 07:00 BP 148/74 07/17/20 07:00 Pulse Ox 96 07/17/20 09:04 Intake & Output 07/16/20 07/17/20 07/17/20 18:59 06:59 18:59 Intake Total 357 350 200 Balance 357 350 200 Intake: Intake, IV Titration 357 50 Amount Sodium Chloride 0.9% 1, 7 000 ml @ 130 mls/hr IV . Q7H42M [facility] Rx#:[id number] Sodium Chloride 0.9% 500 350 ml 500 ml @ 999 mls/hr IV .Q31M [facility] Rx#:[id number] cefTRIAXone 2 gm In 50 Sodium Chloride 0.9% 50 ml @ 100 mls/hr IVPB Q24HR [facility] Rx#:[id number] Oral 300 200 Other: Voiding Method Toilet Toilet # Voids 1 - Exam GENERAL EXAM: Alert, very pleasant, 74-year-old female patient, no acute distress, currently on 2 L of oxygen a pulse ox of 96%, comfortable in no apparent distress. HEAD: Normocephalic/atraumatic. EYES: Normal reaction of pupils, equal size. Conjunctiva pink, sclera white. NOSE: Clear with pink turbinates. THROAT: No erythema or exudates. NECK: No masses, no JVD, no thyroid enlargement, no adenopathy. CHEST: No chest wall deformity. Symmetrical expansion. LUNGS: Equal air entry with few scattered rhonchi bilaterally. CVS: Regular rate and rhythm, normal S1 and S2, no gallops, no murmurs, no rubs ABDOMEN: Soft, nontender. No hepatosplenomegaly, normal bowel sounds, no guar ding or rigidity. EXTREMITIES: No clubbing, no edema, no cyanosis, 2+ pulses and upper and lower extremities. MUSCULOSKELETAL: Muscle strength and tone normal. SPINE: No scoliosis or deformity SKIN: No rashes CENTRAL NERVOUS SYSTEM: Alert and oriented -3. No focal deficits, tone is normal in all 4 extremities. PSYCHIATRIC: Alert and oriented -3. Appropriate affect. Intact judgment and insight. - Labs CBC & Chem 7: 07/16/20 10:57 07/16/20 10:57 Labs: Abnormal Lab Results - Last 24 Hours (Table) 07/16/20 Range/Units 10:57 Glucose 127 H (70-110) mg/dL Calcium 7.9 L (8.7-10.3) mg/dL Ferritin 416.9 H (10.0-291.0) ng/mL Lactate Dehydrogenase 358 H (120-246) U/L C-Reactive Protein 25.0 H (0.0-0.8) mg/dL Total Protein 4.9 L (6.2-8.2) g/dL Albumin 2.90 L (3.80-4.90) g/dL Albumin/Globulin Ratio 1.45 L (1.60-3.17) g/dL Microbiology - Last 24 Hours (Table) 07/15/20 16:56 Urine Culture - Preliminary Urine,Voided Gram Neg Bacilli 07/15/20 16:18 Blood Culture - Preliminary Blood No Growth after 24 hours Assessment and Plan Assessment: #1. Acute hypoxic respiratory failure related to sepsis related to underlying gram-negative bacilli urinary tract infection #2. Bilateral upper lobe patchy groundglass pulmonary infiltrates, COVID 19 ruled out, this possibly related to inflammatory changes, possibility of fluid is not excluded. #3. Elevated d-dimer, pulmonary embolism was ruled out with CT chest #4. Recent history of right hip replacement at [facility], and patient was staying with her sister who lives locally following her discharge #5. Hypertension #6. Hyperlipidemia #7. History of gastric bypass surgery #8. Former smoker, currently in remission #9. Underlying history of COPD Plan: The patient was seen and evaluated by Dr. Mesa Chest x-ray and labs reviewed Continue bronchodilators and antibiotics Continue anticoagulation Increase her activity as tolerated Titrate down the FiO2 as tolerated We'll continue to follow I, the cosigning physician, performed a history & physical examination of the patient. Lungs sounds with few scattered rhonchi bilaterally. Maintaining good O2 saturations in the 90s on 2 L/m per nasal cannula. I discussed the assessment and plan of care with my nurse practitioner, Alis Mosqueda. I attest to the above note as dictated by her.
[2020-07-17] MEDS: MAGNESIUM SULFATE-D5W PMX 1 GM in DEXTROSE/WATER 1 100ML.BAG IVPB SCH ×2 (14:23→16:28)
--- NOTE | 2020-07-17 15:55 | P.PN ---
Subjective Patient is admitted for COPD exacerbation and there is also possibility of urinary tract infection patient is on antibiotics for that and patient has gram- negative bacilli in the urine creatinine 100,000 patient is being continued on Rocephin. Constitutional: Denied any fatigue denied any fever. Cardio vascular: denied any chest pain, palpitations Gastrointestinal denied any nausea vomiting Pulmonary: Denied any shortness of breath cough Neurologic denied any new focal deficits All inpatient medications were reviewed and appropriate changes in these medications as dictated in the interval history and assessment and plan. Objective - Vital Signs Vital signs: Vital Signs Temp 97.7 F 07/17/20 14:32 Pulse 72 07/17/20 15:47 Resp 20 07/17/20 14:32 BP 107/64 07/17/20 14:32 Pulse Ox 92 L 07/17/20 14:32 Intake & Output 07/16/20 07/17/20 07/17/20 18:59 06:59 18:59 Intake Total 357 350 400 Balance 357 350 400 Intake: Intake, IV Titration 357 50 Amount Sodium Chloride 0.9% 1, 7 000 ml @ 130 mls/hr IV . Q7H42M [facility]A Rx#:[id number] Sodium Chloride 0.9% 500 350 ml 500 ml @ 999 mls/hr IV .Q31M [facility] Rx#:[id number] cefTRIAXone 2 gm In 50 Sodium Chloride 0.9% 50 ml @ 100 mls/hr IVPB Q24HR [facility] [place] Rx#:[id number] Oral 300 400 Other: Voiding Method Toilet Toilet # Voids 1 2 - Exam PHYSICAL EXAMINATION: GENERAL: The patient is alert and oriented x3, not in any acute distress. Well developed, well nourished. HEENT: Pupils are round and equally reacting to light. EOMI. No scleral icterus. No conjunctival pallor. Normocephalic, atraumatic. No pharyngeal erythema. No thyromegaly. CARDIOVASCULAR: S1 and S2 present. No murmurs, rubs, or gallops. PULMONARY: Chest is clear to auscultation, no wheezing or crackles. ABDOMEN: Soft, nontender, nondistended, normoactive bowel sounds. No palpable organomegaly. MUSCULOSKELETAL: No joint swelling or deformity. EXTREMITIES: No cyanosis, clubbing, or pedal edema. NEUROLOGICAL: Gross neurological examination did not reveal any focal deficits. SKIN: No rashes. - Labs CBC & Chem 7: 07/16/20 10:57 07/16/20 10:57 Labs: Abnormal Lab Results - Last 24 Hours (Table) 07/16/20 Range/Units 10:57 Glucose 127 H (70-110) mg/dL Calcium 7.9 L (8.7-10.3) mg/dL Ferritin 416.9 H (10.0-291.0) ng/mL Lactate Dehydrogenase 358 H (120-246) U/L C-Reactive Protein 25.0 H (0.0-0.8) mg/dL Total Protein 4.9 L (6.2-8.2) g/dL Albumin 2.90 L (3.80-4.90) g/dL Albumin/Globulin Ratio 1.45 L (1.60-3.17) g/dL Microbiology - Last 24 Hours (Table) 07/15/20 16:56 Urine Culture - Preliminary Urine,Voided Gram Neg Bacilli 07/15/20 16:18 Blood Culture - Preliminary Blood No Growth after 24 hours Assessment and Plan Plan: -Acute the hypoxic and acute hypercapnic respiratory failure: Secondary to to COPD exacerbation patient's wheezing improved -Sepsis: Secondary to possible urinary tract infection continue with Rocephin -Hyperlipidemia -Hypertension #Depression gastroesophageal reflux disease -Proximal A. fib presently sinus rhythm and rate controlled patient is an anticoagulation
[2020-07-17] MEDS: ATORVASTATIN 20 MG TAB PO SCH (20:49)
[2020-07-18] MEDS: HYDROcodone/APAP 10-325MG 1 EACH TAB PO PRN ×2 (04:05→10:40)
[2020-07-18 06:23] LABS: Basophils % (A) 0 %; Eosinophils # (A) 0.1 k/uL (0-0.7); Eosinophils % (A) 1 %; HCT 28.2 % (34.0-46.0); HGB 8.9 gm/dL (11.4-16.0); Hypochromasia Slight; Lymphocytes # (A) 1.7 k/uL (1.0-4.8); Lymphocytes % (A) 20 %; MCH 28.7 pg (25.0-35.0); MCHC 31.4 g/dL (31.0-37.0); MCV 91.5 fL (80.0-100.0); Mean Platelet Volume 6.7; Monocytes # (A) 0.4 k/uL (0-1.0); Monocytes % (A) 5 %; Neutrophils % (A) 72 %; Platelet Count 516 k/uL (150-450); RBC 3.09 m/uL (3.80-5.40); RDW 13.3 % (11.5-15.5); WBC 8.3 k/uL (3.8-10.6)
[2020-07-18 07:50] VITALS: BP 146/69; RESP 16; TEMP 98.2
[2020-07-18] MEDS: SYMBICORT 80-4.5 MCG INHALER INHALATION PRN (07:52)
[2020-07-18] MEDS: IPRATROPIUM-ALBUTEROL 3 ML NEB INHALATION SCH ×3 (07:52→15:27)
[2020-07-18] MEDS: GABAPENTIN 300 MG CAP PO SCH (08:02)
[2020-07-18] MEDS: CHOLECALCIFEROL 1,000 UNIT TAB PO SCH (08:02)
[2020-07-18] MEDS: predniSONE 20 MG TAB PO SCH (08:02)
[2020-07-18] MEDS: AZITHROMYCIN 500 MG TAB PO SCH (08:02)
[2020-07-18] MEDS: FLUoxetine HCL 20 MG CAP PO SCH (08:03)
[2020-07-18] MEDS: amLODIPine 5 MG TAB PO SCH (08:03)
[2020-07-18] MEDS: lisinopriL 20 MG TAB PO SCH (08:03)
[2020-07-18] MEDS: METOPROLOL TARTRATE 50 MG TAB PO SCH (08:03)
[2020-07-18] MEDS: MULTIVITAMINS, THERA 1 EACH TAB PO SCH (08:04)
[2020-07-18] MEDS: APIXABAN 2.5 MG TABLET PO SCH (08:04)
[2020-07-18] MEDS: PANTOPRAZOLE 40 MG TABLET PO SCH (08:04)
[2020-07-18 10:07] LABS: African American GFR (CKD) 104.8 (60.0-200.0); Albumin 2.9 g/dL (3.80-4.90); Albumin/Globulin Ratio 1.45 (1.60-3.17); Anion Gap 3.8 mmol/L (4.00-12.00); BUN/Creat Ratio 23.33 Ratio (12.00-20.00); C Reactive Protein 6.6 mg/dL (0.0-0.8); Calcium 8.5 mg/dL (8.7-10.3); Carbon Dioxide 30.2 mmol/L (21.6-31.8); Non-African American GFR(CKD) 90.4 (60.0-200.0); Potassium 3.6 mmol/L (3.5-5.5); Total Bilirubin 0.2 mg/dL (0.3-1.2); Total Protein 4.9 g/dL (6.2-8.2)
[2020-07-18 10:16] LABS: Ferritin 425.5 ng/mL (10.0-291.0)
[2020-07-18] MEDS ORDERED: MAGNESIUM SULFATE-D5W PMX 1 GM in DEXTROSE/WATER 1 100ML.BAG IVPB ONE (10:46)
[2020-07-18 11:12] VITALS: PULSE 68
--- NOTE | 2020-07-18 11:54 | P.DS ---
Providers Date of admission: 07/15/20 18:28 Attending physician: Jensen Akhtar MD Consults: 07/15/20 21:24 Consult Physician Routine Consulting Provider: Renuka Mesa Consult Reason/Comments: pneumonia/covid ruleout Do you want consulting provider notified?: Yes, Notify in am Primary care physician: [facility] Course: Patient is admitted for COPD exacerbation and there is also possibility of urinary tract infection patient is on antibiotics for that and patient has gram- negative bacilli in the urine creatinine 100,000 patient is being continued on Rocephin. 07/18/2020 Patient is reasonably resolved patient is off oxygen patient patient will be discharged on weaning dose of steroids and patient has E. coli in the urine which is sensitive to cefazolin be discharged on 3 more days of Ceftin. PHYSICAL EXAMINATION: GENERAL: The patient is alert and oriented x3, not in any acute distress. Well developed, well nourished. HEENT: Pupils are round and equally reacting to light. EOMI. No scleral icterus. No conjunctival pallor. Normocephalic, atraumatic. No pharyngeal erythema. No thyromegaly. CARDIOVASCULAR: S1 and S2 present. No murmurs, rubs, or gallops. PULMONARY: Chest is clear to auscultation, no wheezing or crackles. ABDOMEN: Soft, nontender, nondistended, normoactive bowel sounds. No palpable organomegaly. MUSCULOSKELETAL: No joint swelling or deformity. EXTREMITIES: No cyanosis, clubbing, or pedal edema. NEUROLOGICAL: Gross neurological examination did not reveal any focal deficits. SKIN: No rashes. Assessment and Plan Plan: -Acute the hypoxic and acute hypercapnic respiratory failure: Secondary to to COPD exacerbation patient's wheezing improved -Sepsis: possible UTI, antibiotics as mentioned above -Hyperlipidemia -Hypertension #Depression gastroesophageal reflux disease -Proximal A. fib presently sinus rhythm and rate controlled patient is an anticoagulation Patient Condition at Discharge: Stable Plan - Discharge Summary Discharge Rx Participant: No New Discharge Prescriptions: New Cefuroxime Axetil [Ceftin] 500 mg PO BID 3 Days #6 tab predniSONE 10 mg PO DAILY #30 tab Albuterol Inhaler [Ventolin Hfa Inhaler] 2 puff INHALATION RT-QID PRN #1 inhaler PRN Reason: Shortness Of Breath Or Wheezing Continue Vitamin B-12(Unknown Dose) 1 tab PO DAILY Acetaminophen Tab [Tylenol] 500 - 1,000 mg PO Q4-6H PRN PRN Reason: Pain amLODIPine [Norvasc] 5 mg PO DAILY Apixaban [Eliquis] 2.5 mg PO BID Atorvastatin [Lipitor] 20 mg PO HS Cholecalciferol [Vitamin D3 (25 Mcg = 1000 Iu)] 2,000 unit PO DAILY Docusate [Colace] 100 mg PO BID PRN PRN Reason: Constipation Fexofenadine HCl [Sushila Allergy] 180 mg PO DAILY FLUoxetine HCL [PROzac] 40 mg PO DAILY FLUoxetine HCL [PROzac] 20 mg PO HS Gabapentin 300 mg PO DAILY Gabapentin 600 mg PO HS HYDROcodone/APAP 10-325MG [[place]wood 10-325] 1 - 2 tab PO Q4-6H PRN PRN Reason: Pain Lansoprazole 30 mg PO DAILY lisinopriL 20 mg PO DAILY Melatonin 5 mg PO HS PRN PRN Reason: Insomnia Metoprolol Tartrate [Lopressor] 50 mg PO BID Multivitamins, Thera [Multivitamin (formulary)] 1 tab PO DAILY Ondansetron HCl [Zofran] 8 mg PO TID PRN PRN Reason: Nausea And Vomiting polyethylene glycoL 3350 [Miralax] 17 gm PO DAILY PRN PRN Reason: Constipation Sennosides [Senna] 17.2 mg PO DAILY PRN PRN Reason: Constipation Changed Fluticasone/Vilanterol [Breo Ellipta 100-25 Mcg Inhaler] 1 puff INHALATION RT-DAILY #0 Discharge Medication List Acetaminophen Tab [Tylenol] 500 - 1,000 mg PO Q4-6H PRN 07/15/20 [History] Apixaban [Eliquis] 2.5 mg PO BID 07/15/20 [History] Atorvastatin [Lipitor] 20 mg PO HS 07/15/20 [History] Cholecalciferol [Vitamin D3 (25 Mcg = 1000 Iu)] 2,000 unit PO DAILY 07/15/20 [History] Docusate [Colace] 100 mg PO BID PRN 07/15/20 [History] FLUoxetine HCL [PROzac] 20 mg PO HS 07/15/20 [History] FLUoxetine HCL [PROzac] 40 mg PO DAILY 07/15/20 [History] Fexofenadine HCl [Sushila Allergy] 180 mg PO DAILY 07/15/20 [History] Gabapentin 300 mg PO DAILY 07/15/20 [History] Gabapentin 600 mg PO HS 07/15/20 [History] HYDROcodone/APAP 10-325MG [[place]wood 10-325] 1 - 2 tab PO Q4-6H PRN 07/15/20 [History] Lansoprazole 30 mg PO DAILY 07/15/20 [History] Melatonin 5 mg PO HS PRN 07/15/20 [History] Metoprolol Tartrate [Lopressor] 50 mg PO BID 07/15/20 [History] Multivitamins, Thera [Multivitamin (formulary)] 1 tab PO DAILY 07/15/20 [History] Ondansetron HCl [Zofran] 8 mg PO TID PRN 07/15/20 [History] Sennosides [Senna] 17.2 mg PO DAILY PRN 07/15/20 [History] Vitamin B-12(Unknown Dose) 1 tab PO DAILY 07/15/20 [History] amLODIPine [Norvasc] 5 mg PO DAILY 07/15/20 [History] lisinopriL 20 mg PO DAILY 07/15/20 [History] polyethylene glycoL 3350 [Miralax] 17 gm PO DAILY PRN 07/15/20 [History] Albuterol Inhaler [Ventolin Hfa Inhaler] 2 puff INHALATION RT-QID PRN #1 inhaler 07/18/20 [Rx] Cefuroxime Axetil [Ceftin] 500 mg PO BID 3 Days #6 tab 07/18/20 [Rx] Fluticasone/Vilanterol [Breo Ellipta 100-25 Mcg Inhaler] 1 puff INHALATION RT- DAILY #0 07/18/20 [Rx] predniSONE 10 mg PO DAILY #30 tab 07/18/20 [Rx] Follow up Appointment(s)/Referral(s): Nonstaff,Physician [REFERRING] - 3 Days Renuka Mesa MD [STAFF PHYSICIAN] - 1 Week Discharge Disposition: HOME SELF-CARE
--- NOTE | 2020-07-18 12:16 | P.PN ---
Subjective Progress Note Date: 07/18/20 Principal diagnosis: Acute hypoxic respiratory failure secondary to sepsis secondary to underlying urinary tract infection 74-year-old white female patient with a recent history of right hip replacement at [facility] who is staying in this area with her sister for recovery. Patient has a past medical history significant for hypertension, hyperlipidemia, she is a former smoker, she has had a gastric bypass surgery in the past, and history of depression. She presented to the emergency department on 07/15/2020 evaluation of fever, cough, increased weakness, EMS transported the patient to the hospital and she was noted to be hypoxic with a pulse ox of 89% on room air. Patient's onset of symptoms was several days ago, patient denies any lower extremity swelling, or pain in the calves. Her right hip incision is clean dry and intact, without evidence of swelling or erythema. Chest x-ray showed right apical infiltrate. Labs did not show any significant leukocytosis, with white blood cell, only at 12.1, hemoglobin is 10.1, d-dimer was 1.8, INR 0.9, electrolytes and renal profile were unremarkable, troponin was negative at less than 0.012, LFTs are within normal limits, except for alk phos at 137, urinalysis showed nitrites, small amount of blood, large amount of leuk trase, and increased white blood cell count and many bacteria consistent with urinary tract infection, proBNP was 3640. CTA chest showed no evidence of pulmonary embolism, bilateral upper lobe patchy groundglass pulmonary interstitial infiltrates, no suspicious pulmonary mass. COVID 19 PCR was negative. EKG showed sinus rhythm with PACs with apparent conduction, and nonspecific ST and T-wave abnormality. Patient was started on empiric antibiotics in the form of azithromycin and Rocephin, patient is on oral anticoagulation form of Eliquis possibly following her recent right hip surgery. She is awake, appears to be in no acute distress, afebrile, and 4 L of oxygen a pulse ox 96% The patient was seen today 07/17/2020 in follow-up on the regular medical floor. She is doing quite a bit better today. Currently sitting up in a chair at the bedside. Awake and alert in no acute distress. Maintaining good O2 saturations in the mid 90s on 2 L/m per nasal cannula. Chest x-ray reveals chronic changes and cardiomegaly with bilateral multifocal infiltrates, stable compared to previous. She's been afebrile. Hemodynamically stable. Urine culture positive for gram-negative bacilli. White count 7.6. Hemoglobin 9.1. D-dimer 1.28. Sodium 141. Potassium 3.9. Creatinine 0.7. LDH 358. C-reactive protein 25. Covid 19 screen negative. She is currently on DuoNeb inhalations, Symbicort, antibiotics in the form of azithromycin and ceftriaxone. Oral prednisone. The patient is seen today 07/18/2020 in follow-up on the regular medical floor. She is currently sitting up at the bedside. Awake and alert in no acute distress. She states her breathing is nearly back to her baseline. No worsening cough or congestion. No fever chills. Maintaining good O2 saturati ons in the 90s on room air. Blood culture reveals no growth. Urine culture positive for E. coli. White count 8.3. Hemoglobin 8.9. Sodium 140. Potassium 3.6. Creatinine 0.6. Glucose 112. ProBNP 2740. LDH 217 and creatinine kinase 27. C-reactive protein is 6.6. She remains on DuoNeb inhalations, Symbicort, antibiotics in the form of ceftriaxone. Anticoagulated with Eliquis. Objective - Vital Signs Vital signs: Vital Signs Temp 98.2 F 07/18/20 06:59 Pulse 68 07/18/20 11:23 Resp 16 07/18/20 06:59 BP 146/69 07/18/20 06:59 Pulse Ox 94 L 07/18/20 07:53 Intake & Output 07/17/20 07/18/20 07/18/20 18:59 06:59 18:59 Intake Total 600 700 Balance 600 700 Intake: Intake, IV Titration 100 Amount cefTRIAXone 2 gm In 100 Sodium Chloride 0.9% 50 ml @ 100 mls/hr IVPB Q24HR [facility] Rx#:[id number] Oral 600 600 Other: # Voids 2 1 - Exam GENERAL EXAM: Alert, very pleasant, 74-year-old female patient, no acute distress, currently on room air a pulse ox of 94%, comfortable in no apparent distress. HEAD: Normocephalic/atraumatic. EYES: Normal reaction of pupils, equal size. Conjunctiva pink, sclera white. NOSE: Clear with pink turbinates. THROAT: No erythema or exudates. NECK: No masses, no JVD, no thyroid enlargement, no adenopathy. CHEST: No chest wall deformity. Symmetrical expansion. LUNGS: Equal air entry with no rhonchi, crackles or wheeze. CVS: Regular rate and rhythm, normal S1 and S2, no gallops, no murmurs, no rubs ABDOMEN: Soft, nontender. No hepatosplenomegaly, normal bowel sounds, no guarding or rigidity. EXTREMITIES: No clubbing, no edema, no cyanosis, 2+ pulses and upper and lower extremities. MUSCULOSKELETAL: Muscle strength and tone normal. SPINE: No scoliosis or deformity SKIN: No rashes CENTRAL NERVOUS SYSTEM: No focal deficits, tone is normal in all 4 extremities. PSYCHIATRIC: Alert and oriented -3. Appropriate affect. Intact judgment and insight. - Labs CBC & Chem 7: 07/18/20 05:31 07/18/20 05:31 Labs: Abnormal Lab Results - Last 24 Hours (Table) 07/18/20 07/18/20 07/18/20 Range/Units 05:31 05:31 05:31 RBC 3.09 L (3.80-5.40) m/uL Hgb 8.9 L (11.4-16.0) gm/dL Hct 28.2 L (34.0-46.0) % Plt Count 516 H (150-450) k/uL Fibrinogen 551 H (200-500) mg/dL Anion Gap 3.80 L (4.00-12.00) mmol/L BUN/Creatinine Ratio 23.33 H (12.00-20.00) Ratio Glucose 112 H (70-110) mg/dL Calcium 8.5 L (8.7-10.3) mg/dL Ferritin 425.5 H (10.0-291.0) ng/mL Total Bilirubin 0.2 L (0.3-1.2) mg/dL C-Reactive Protein 6.6 H (0.0-0.8) mg/dL Total Protein 4.9 L (6.2-8.2) g/dL Albumin 2.90 L (3.80-4.90) g/dL Albumin/Globulin Ratio 1.45 L (1.60-3.17) g/dL Microbiology - Last 24 Hours (Table) 07/15/20 16:56 Urine Culture - Final Urine,Voided Escherichia coli 07/15/20 16:18 Blood Culture - Preliminary Blood No Growth after 48 hours Assessment and Plan Assessment: #1. Acute hypoxic respiratory failure related to sepsis related to underlying E. coli urinary tract infection #2. Bilateral upper lobe patchy groundglass pulmonary infiltrates, COVID 19 ruled out, this possibly related to inflammatory changes, possibility of fluid is not excluded. #3. Elevated d-dimer, pulmonary embolism was ruled out with CT chest #4. Recent history of right hip replacement at [facility], and patient was staying with her sister who lives locally following her discharge #5. Hypertension #6. Hyperlipidemia #7. History of gastric bypass surgery #8. Former smoker, currently in remission #9. Underlying history of COPD Plan: The patient was seen and evaluated by Dr. Mesa She is cleared for discharge from the pulmonary standpoint She was offered an appointment in our office in 1-2 weeks' time, however, she plans to follow up with her PCP in [place], the cosigning physician, performed a history & physical examination of the patient. Lungs sounds clear. Maintaining good O2 saturations in the 90s on room air. I discussed the assessment and plan of care with my nurse practitioner, Alis Mosqueda. I attest to the above note as dictated by her.
--- NOTE | 2020-07-21 11:22 | ECHOF ---
Referral Reason:R/O CHF MEASUREMENTS -------- HEIGHT: 0.0 cm WEIGHT: 0.0 kg BP: RVIDd: 3.3 cm (< 3.3) IVSd: 0.9 cm (0.6 - 1.1) LVIDd: 4.3 cm (3.9 - 5.3) LVPWd: 1.1 cm (0.6 - 1.1) IVSs: 1.1 cm LVIDs: 4.0 cm LVPWs: 1.2 cm LA Diam: 3.7 cm (2.7 - 3.8) Ao Diam: 3.0 cm (2.0 - 3.7) MV EXCURSION: 20.182 mm (> 18.000) MV EF SLOPE: 144 mm/s (70 - 150) EPSS: 0.4 cm MV E Shiraz: 0.81 m/s MV DecT: 143 ms MV A Shiraz: 0.74 m/s MV E/A Ratio: 1.11 RAP: 5.00 mmHg RVSP: 23.29 mmHg FINDINGS -------- Sinus rhythm. This was a technically adequate study. LV size, wall thickness and systolic function are normal, with an EF greater than 55%. The left jimenez tricular size is normal. The right ventricle is normal in size. The left atrial size is normal. The right atrial size is normal. There is mild aortic valve sclerosis. There is mild aortic regurgitation. Mild mitral regurgitation is present. No regurgitation noted Right ventricular systolic pressure is normal at < 35 mmHg. There is no pulmonic regurgitation present. The aortic root size is normal. There is no pericardial effusion. CONCLUSIONS -------- 1. LV size, wall thickness and systolic function are normal, with an EF greater than 55%. 2. The left ventricular size is normal. 3. The right ventricle is normal in size. 4. The left atrial size is normal. 5. The right atrial size is normal. 6. There is mild aortic valve sclerosis. 7. There is mild aortic regurgitation. 8. Mild mitral regurgitation is present. 9. No regurgitation noted 10. There is no pericardial effusion. TRAILER TECHNICIAN: Shweta Sauer RDCS
== END 2020-07-18 15:15 | disposition home health service (06) | DRG 871 ==
LOC: EC 15:29 → 4SSUR 18:28
PROVIDERS: ADMIT Internal Medicine; ATTEND Internal Medicine
DX: A41.51 Sepsis due to Escherichia coli [E. coli] (principal); J96.01 Acute respiratory failure with hypoxia; J96.02 Acute respiratory failure with hypercapnia; N39.0 Urinary tract infection, site not specified; J44.1 Chronic obstructive pulmonary disease with (acute) exacerbation; E78.5 Hyperlipidemia, unspecified; I10 Essential (primary) hypertension; F32.9 Major depressive disorder, single episode, unspecified; I48.0 Paroxysmal atrial fibrillation; Z79.01 Long term (current) use of anticoagulants; K21.9 Gastro-esophageal reflux disease without esophagitis; Z20.828 Contact with and (suspected) exposure to other viral communicable diseases; Z79.899 Other long term (current) drug therapy; Z87.891 Personal history of nicotine dependence; Z96.641 Presence of right artificial hip joint; Z98.84 Bariatric surgery status; Z98.1 Arthrodesis status; E66.9 Obesity, unspecified; Z68.31 Body mass index [BMI] 31.0-31.9, adult; R79.1 Abnormal coagulation profile; Z88.6 Allergy status to analgesic agent; Z88.1 Allergy status to other antibiotic agents; Z88.2 Allergy status to sulfonamides
CPT/HCPCS: 36415; 71045; 71046; 71275; 80053; 81001; 82550; 82728; 83605; 83615; 83735; 83880; 84484; 85025; 85379; 85384; 85610; 85730; 86140; 87040; 87077; 87086; 87186; 93306; 94640; 94760; 94762; 96361; 96365; 96366; 96375; 99285

== ENCOUNTER 2020-08-03 15:21 | Inpatient (IN) | payer MEDICARE, BC ==
[2020-08-03] MEDS ORDERED: IPRATROPIUM-ALBUTEROL 3 ML NEB INHALATION STA (16:00)
--- NOTE | 2020-08-03 16:00 | ED ---
SOB HPI - General Chief Complaint: Shortness of Breath Stated Complaint: SOB Time Seen by Provider: 08/03/20 15:37 Source: patient Mode of arrival: ambulatory Limitations: no limitations - History of Present Illness Initial Comments: Patient is a 74-year-old female who presents to the emergency department with reported exertional dyspnea. Patient denies previous history of underlying lung or cardiac issues. She had a hip replacement done last month. 9 days afterward she was treated for pneumonia which required hospitalization at our hospital. During that time she was evaluated by Dr. Mesa and was told that she had COPD. She does not wear home oxygen. She was provided with 2 inhalers which she states she's been using at home. Reports that her breathing originally improved however since Sunday she has had worsening shortness of breath especially with exertion. Admits to a mild nonproductive cough. No fevers or chills. No sick contacts with similar symptoms. No history of DVT or PE. Currently is on Eliquis for anticoagulation post surgery. Denies missing any doses. Does admit to some increased lower extremity edema. Denies history of heart failure. She does have home health care which has been assisting her since her surgery. Reports that she is otherwise had normal vital signs. Home health care nurse visited today noted that her oxygen saturations dropped to 88%. He recommended that she go to an urgent care. Urgent care on the patient to be hypoxic at 88% and directed her to go immediately to the hospital. She denies any chest pain. No calf pain. No abdominal pain. No other alleviating, precipitating or modifying factors - Related Data Home Medications Medication Instructions Recorded Confirmed Acetaminophen Tab [Tylenol] 500 - 1,000 mg PO Q4-6H PRN 07/15/20 08/03/20 Apixaban [Eliquis] 2.5 mg PO BID 07/15/20 08/03/20 Atorvastatin [Lipitor] 20 mg PO HS 07/15/20 08/03/20 Cholecalciferol [Vitamin D3 (25 2,000 unit PO DAILY 07/15/20 08/03/20 Mcg = 1000 Iu)] Docusate [Colace] 100 mg PO BID PRN 07/15/20 08/03/20 FLUoxetine HCL [PROzac] 20 mg PO HS 07/15/20 08/03/20 FLUoxetine HCL [PROzac] 40 mg PO DAILY 07/15/20 08/03/20 Fexofenadine HCl [Sushila Allergy] 180 mg PO DAILY 07/15/20 08/03/20 Gabapentin 300 mg PO DAILY 07/15/20 08/03/20 Gabapentin 600 mg PO HS 07/15/20 08/03/20 HYDROcodone/APAP 10-325MG [[place] 1 - 2 tab PO Q4-6H PRN 07/15/20 08/03/20 10-325] Lansoprazole 30 mg PO DAILY 07/15/20 08/03/20 Melatonin 5 mg PO HS PRN 07/15/20 08/03/20 Metoprolol Tartrate [Lopressor] 50 mg PO BID 07/15/20 08/03/20 Multivitamins, Thera [Multivitamin 1 tab PO DAILY 07/15/20 08/03/20 (formulary)] Ondansetron HCl [Zofran] 8 mg PO TID PRN 07/15/20 08/03/20 Sennosides [Senna] 17.2 mg PO DAILY PRN 07/15/20 08/03/20 Vitamin B-12(Unknown Dose) 1 tab PO DAILY 07/15/20 08/03/20 amLODIPine [Norvasc] 5 mg PO DAILY 07/15/20 08/03/20 lisinopriL 20 mg PO DAILY 07/15/20 08/03/20 polyethylene glycoL 3350 [Miralax] 17 gm PO DAILY PRN 07/15/20 08/03/20 Albuterol Sulfate [Proventil Hfa] 2 puff INHALATION RT-QID PRN 08/03/20 08/03/20 Previous Rx's Medication Instructions Recorded Fluticasone/Vilanterol [Breo 1 puff INHALATION RT-DAILY #0 07/18/20 Ellipta 100-25 Mcg Inhaler] Allergies Allergy/AdvReac Type Severity Reaction Status Date / Time ciprofloxacin [From Cipro] Allergy Unknown Verified 08/03/20 16:46 clarithromycin [From Biaxin] Allergy Unknown Verified 08/03/20 16:46 ibuprofen [From Motrin] Allergy Unknown Verified 08/03/20 16:46 Sulfa (Sulfonamide Allergy Unknown Verified 08/03/20 16:46 Antibiotics) NSAIDS (Non-Steroidal AdvReac Nausea & Verified 08/03/20 16:46 Anti-Inflamma Vomiting & Diarrhea Review of Systems ROS Statement: Those systems with pertinent positive or pertinent negative responses have been documented in the HPI. ROS Other: All systems not noted in ROS Statement are negative. Past Medical History Past Medical History: Hyperlipidemia, Hypertension History of Any Multi-Drug Resistant Organisms: None Reported Past Surgical History: Appendectomy, Orthopedic Surgery Additional Past Surgical History / Comment(s): gastric bypass, lumbar fusion (L5) in 2019 Past Anesthesia/Blood Transfusion Reactions: No Reported Reaction Past Psychological History: Depression Smoking Status: Former smoker Past Alcohol Use History: Rare Past Drug Use History: None Reported - Past Family History Father History Unknown: Yes General Exam Limitations: no limitations General appearance: alert, in no apparent distress Head exam: Present: atraumatic, normocephalic, normal inspection Eye exam: Present: normal appearance, PERRL, EOMI. Absent: scleral icterus, conjunctival injection, periorbital swelling ENT exam: Present: normal exam, mucous membranes moist Neck exam: Present: normal inspection. Absent: tenderness, meningismus, lymphadenopathy Respiratory exam: Present: normal lung sounds bilaterally. Absent: respiratory distress, wheezes, rales, rhonchi, stridor Cardiovascular Exam: Present: regular rate, normal rhythm, normal heart sounds. Absent: systolic murmur, diastolic murmur, rubs, gallop, clicks GI/Abdominal exam: Present: soft, normal bowel sounds. Absent: distended, tenderness, guarding, rebound, rigid Extremities exam: Present: normal inspection, full ROM, normal capillary refill. Absent: tenderness, pedal edema, joint swelling, calf tenderness Back exam: Present: normal inspection Neurological exam: Present: alert, oriented X3, CN II-XII intact Psychiatric exam: Present: normal affect, normal mood Skin exam: Present: warm, dry, intact, normal color. Absent: rash Course Vital Signs 08/03/20 08/03/20 08/03/20 15:29 16:20 16:40 Temperature 98.9 F Pulse Rate 68 73 70 Respiratory 18 20 Rate Blood Pressure 142/69 151/80 O2 Sat by Pulse 94 L 95 Oximetry 08/03/20 08/03/20 08/03/20 16:52 17:30 19:14 Temperature 98.0 F Pulse Rate 74 81 77 Respiratory 18 18 Rate Blood Pressure 154/68 144/67 O2 Sat by Pulse 94 L 95 Oximetry Medical Decision Making - Medical Decision Making Upon arrival the patient is placed in room 23. A thorough history and physical exam was performed. Patient is placed on supplemental oxygen. Peripheral IV is placed. Laboratory scissor conducted. Patient does have an elevated d-dimer of 0.81. BNP is 1000 480. Chest x-ray demonstrates cardio medically and chronic changes with persistent right upper lung increased opacity which could reflect residual acute infiltrate. Because of the patient's elevated d-dimer a CTA was performed which demonstrates interval progression of multifocal multilobar right-sided groundglass opacities worrisome for multilobar pneumonia. Because of this the patient was tested for Covid. Blood cultures were obtained and the patient was initiated on antibiotics. Because of her hypoxia with worsening pneumonia after she is a 31 been treated I did recommend hospital admission for patient did agree. Discussed case with Dr. Delgado who accepted admission. Patient was in agreement with this plan and she was transferred to floor in stable condition - Lab Data Result diagrams: 08/04/20 05:56 08/04/20 05:56 Lab Results 08/03/20 08/03/20 08/03/20 Range/Units 16:07 16:07 16:07 WBC 10.1 (3.8-10.6) k/uL RBC 3.95 (3.80-5.40) m/uL Hgb 11.6 (11.4-16.0) gm/dL Hct 36.5 (34.0-46.0) % MCV 92.4 (80.0-100.0) fL MCH 29.4 (25.0-35.0) pg MCHC 31.8 (31.0-37.0) g/dL RDW 15.2 (11.5-15.5) % Plt Count 287 (150-450) k/uL Neutrophils % 71 % Lymphocytes % 17 % Monocytes % 5 % Eosinophils % 5 % Basophils % 0 % Neutrophils # 7.1 (1.3-7.7) k/uL Lymphocytes # 1.7 (1.0-4.8) k/uL Monocytes # 0.5 (0-1.0) k/uL Eosinophils # 0.5 (0-0.7) k/uL Basophils # 0.0 (0-0.2) k/uL Hypochromasia Slight PT 9.8 (9.0-12.0) sec INR 0.9 (<1.2) APTT 26.5 (22.0-30.0) sec D-Dimer 0.81 H (<0.60) mg/L FEU Sodium 136 L (137-145) mmol/L Potassium 4.4 (3.5-5.1) mmol/L Chloride 104 (98-107) mmol/L Carbon Dioxide 27 (22-30) mmol/L Anion Gap 5 mmol/L BUN 16 (7-17) mg/dL Creatinine 0.87 (0.52-1.04) mg/dL Est GFR (CKD-EPI)AfAm 77 (>60 ml/min/1.73 sqM) Est GFR (CKD-EPI)NonAf 66 (>60 ml/min/1.73 sqM) Glucose 88 (74-99) mg/dL Plasma Lactic Acid Stephan (0.7-2.0) mmol/L Calcium 8.9 (8.4-10.2) mg/dL Ferritin (10.0-291.0) ng/mL Total Bilirubin 0.9 (0.2-1.3) mg/dL AST 31 (14-36) U/L ALT 13 (4-34) U/L Alkaline Phosphatase 149 H (38-126) U/L Lactate Dehydrogenase (313-618) U/L Troponin I (0.000-0.034) ng/mL C-Reactive Protein (<10.0) mg/L NT-Pro-B Natriuret Pep pg/mL Total Protein 6.3 (6.3-8.2) g/dL Albumin 3.3 L (3.5-5.0) g/dL Procalcitonin (0.02-0.09) ng/mL 08/03/20 08/03/20 08/03/20 Range/Units 16:07 16:07 16:07 WBC (3.8-10.6) k/uL RBC (3.80-5.40) m/uL Hgb (11.4-16.0) gm/dL Hct (34.0-46.0) % MCV (80.0-100.0) fL MCH (25.0-35.0) pg MCHC (31.0-37.0) g/dL RDW (11.5-15.5) % Plt Count (150-450) k/uL Neutrophils % % Lymphocytes % % Monocytes % % Eosinophils % % Basophils % % Neutrophils # (1.3-7.7) k/uL Lymphocytes # (1.0-4.8) k/uL Monocytes # (0-1.0) k/uL Eosinophils # (0-0.7) k/uL Basophils # (0-0.2) k/uL Hypochromasia PT (9.0-12.0) sec INR (<1.2) APTT (22.0-30.0) sec D-Dimer (<0.60) mg/L FEU Sodium (137-145) mmol/L Potassium (3.5-5.1) mmol/L Chloride (98-107) mmol/L Carbon Dioxide (22-30) mmol/L Anion Gap mmol/L BUN (7-17) mg/dL Creatinine (0.52-1.04) mg/dL Est GFR (CKD-EPI)AfAm (>60 ml/min/1.73 sqM) Est GFR (CKD-EPI)NonAf (>60 ml/min/1.73 sqM) Glucose (74-99) mg/dL Plasma Lactic Acid Stephan 1.0 (0.7-2.0) mmol/L Calcium (8.4-10.2) mg/dL Ferritin (10.0-291.0) ng/mL Total Bilirubin (0.2-1.3) mg/dL AST (14-36) U/L ALT (4-34) U/L Alkaline Phosphatase (38-126) U/L Lactate Dehydrogenase (313-618) U/L Troponin I <0.012 (0.000-0.034) ng/mL C-Reactive Protein (<10.0) mg/L NT-Pro-B Natriuret Pep 1480 pg/mL Total Protein (6.3-8.2) g/dL Albumin (3.5-5.0) g/dL Procalcitonin (0.02-0.09) ng/mL 08/03/20 08/03/20 Range/Units 18:08 18:08 WBC (3.8-10.6) k/uL RBC (3.80-5.40) m/uL Hgb (11.4-16.0) gm/dL Hct (34.0-46.0) % MCV (80.0-100.0) fL MCH (25.0-35.0) pg MCHC (31.0-37.0) g/dL RDW (11.5-15.5) % Plt Count (150-450) k/uL Neutrophils % % Lymphocytes % % Monocytes % % Eosinophils % % Basophils % % Neutrophils # (1.3-7.7) k/uL Lymphocytes # (1.0-4.8) k/uL Monocytes # (0-1.0) k/uL Eosinophils # (0-0.7) k/uL Basophils # (0-0.2) k/uL Hypochromasia PT (9.0-12.0) sec INR (<1.2) APTT (22.0-30.0) sec D-Dimer (<0.60) mg/L FEU Sodium (137-145) mmol/L Potassium (3.5-5.1) mmol/L Chloride (98-107) mmol/L Carbon Dioxide (22-30) mmol/L Anion Gap mmol/L BUN (7-17) mg/dL Creatinine (0.52-1.04) mg/dL Est GFR (CKD-EPI)AfAm (>60 ml/min/1.73 sqM) Est GFR (CKD-EPI)NonAf (>60 ml/min/1.73 sqM) Glucose (74-99) mg/dL Plasma Lactic Acid Stephan (0.7-2.0) mmol/L Calcium (8.4-10.2) mg/dL Ferritin 273.7 (10.0-291.0) ng/mL Total Bilirubin (0.2-1.3) mg/dL AST (14-36) U/L ALT (4-34) U/L Alkaline Phosphatase (38-126) U/L Lactate Dehydrogenase 796 H (313-618) U/L Troponin I (0.000-0.034) ng/mL C-Reactive Protein 79.2 H (<10.0) mg/L NT-Pro-B Natriuret Pep pg/mL Total Protein (6.3-8.2) g/dL Albumin (3.5-5.0) g/dL Procalcitonin 0.07 (0.02-0.09) ng/mL - EKG Data EKG Comments: EKG demonstrates normal sinus rhythm with ventricular rate of 73. LA interval 166. QRS 74. QTC of 436. No acute ST segment elevations or depressions concerning for ischemic changes Disposition Clinical Impression: Pneumonia, Hypoxia Disposition: ADMITTED IP TO THIS HOSP Condition: Stable Is patient prescribed a controlled substance at d/c from ED?: No Decision to Admit Reason: Admit from EC Decision Date: 08/03/20 Decision Time: 18:09
[2020-08-03 16:25] LABS: Basophils % (A) 0 %; Eosinophils # (A) 0.5 k/uL (0-0.7); Eosinophils % (A) 5 %; HCT 36.5 % (34.0-46.0); HGB 11.6 gm/dL (11.4-16.0); Hypochromasia Slight; Lymphocytes # (A) 1.7 k/uL (1.0-4.8); Lymphocytes % (A) 17 %; MCH 29.4 pg (25.0-35.0); MCHC 31.8 g/dL (31.0-37.0); MCV 92.4 fL (80.0-100.0); Mean Platelet Volume 6.8; Monocytes # (A) 0.5 k/uL (0-1.0); Monocytes % (A) 5 %; Neutrophils # (A) 7.1 k/uL (1.3-7.7); Neutrophils % (A) 71 %; Platelet Count 287 k/uL (150-450); RBC 3.95 m/uL (3.80-5.40); RDW 15.2 % (11.5-15.5); WBC 10.1 k/uL (3.8-10.6)
[2020-08-03 16:31] LABS: Albumin 3.3 g/dL (3.5-5.0); Calcium 8.9 mg/dL (8.4-10.2); Potassium 4.4 mmol/L (3.5-5.1); Total Bilirubin 0.9 mg/dL (0.2-1.3); Total Protein 6.3 g/dL (6.3-8.2)
[2020-08-03 16:42] LABS: INR 0.9 (<1.2); Partial Thromboplastin Time 26.5 sec (22.0-30.0); Prothrombin Time 9.8 sec (9.0-12.0)
[2020-08-03 16:48] LABS: D-Dimer 0.81 mg/L FEU (<0.60)
--- NOTE | 2020-08-03 17:11 | XR ---
EXAMINATION TYPE: XR chest 2V DATE OF EXAM: 08/03/2020 COMPARISON: Chest x-ray July 17, 2020. CTA chest July 15, 2020. HISTORY: Difficulty in breathing. TECHNIQUE: Frontal and lateral views of the chest are obtained. FINDINGS: There is background chronic emphysematous change with persistent right upper lung opacity. No pleural effusion or pneumothorax seen bilaterally. The cardiac silhouette size remains enlarged. Surgical clips epigastric region redemonstrated. The osseous structures are intact. IMPRESSION: Cardiomegaly and chronic changes with persistent right upper lung increased opacity coul d reflect residual acute infiltrate.
--- NOTE | 2020-08-03 17:35 | CT ---
EXAMINATION TYPE: CT chest angio for PE DATE OF EXAM: 08/03/2020 COMPARISON: CTA chest 3 weeks ago. HISTORY: Exertional shortness of breath, recent surgery. CT DLP: 552 mGycm. Automated Exposure Control for Dose Reduction was Utilized. CONTRAST: CTA scan of the thorax is performed with IV Contrast, patient injected with 100 mL of Isovue 370, pul monary embolism protocol. MIP Images are created on CT scanner and reviewed. FINDINGS: LUNGS: Persistent multifocal areas of groundglass opacity throughout the right upper lobe and to less er degree anteriorly in the left upper lobe. Left upper lobe findings improved from prior study. Righ t upper lobe findings worse from prior. New multifocal areas of groundglass opacity now present in th e right middle and lower lobes. No pleural effusion or pneumothorax seen bilaterally. MEDIASTINUM: There is satisfactory enhancement of the pulmonary artery and its branches, there is no CT evidence for pulmonary embolism. Satisfactory enhancement of the aorta without aneurysm or dissect ion. There are no greater than 1 cm hilar or mediastinal lymph nodes. No significant pericardial e ffusion is seen. Cardiomegaly redemonstrated OTHER: Cholecystectomy clips again seen. Mild multilevel spurring thoracic spine. IMPRESSION: 1. No CT evidence for acute pulmonary embolism. 2. Interval progression of multifocal multilobar right-sided groundglass opacities worrisome for mult ilobar pneumonia. Covid-19 infection needs to be considered in current environment. Correlate clinica jeff.
[2020-08-03] MEDS ORDERED: PIPERACILLIN-TAZOBACTAM 3.375 GM in SODIUM CHLORIDE 0.9% 100 ML IVPB STA (18:07)
[2020-08-03] MEDS ORDERED: NALOXONE 0.4 MG/ML 1 ML VIAL IV PRN (18:09)
[2020-08-03] MEDS ORDERED: HYDROcodone/APAP 10-325MG 1 EACH TAB PO ONE (18:11)
[2020-08-03] MEDS ORDERED: SENNOSIDES 8.6 MG TAB PO PRN (18:11)
[2020-08-03] MEDS ORDERED: DOCUSATE 100 MG CAP PO PRN (18:11)
[2020-08-03] MEDS ORDERED: polyethylene glycoL 3350 17 GM POWD.PACK PO PRN (18:11)
[2020-08-03] MEDS ORDERED: ALBUTEROL NEBULIZED 2.5 MG/3 ML INHALATION PRN (18:11)
[2020-08-03] MEDS ORDERED: VANCOMYCIN IV PER PHARMACY 1 EACH MISC MISCELLANE PRN ×2 (18:14→22:08)
[2020-08-03] MEDS ORDERED: VANCOMYCIN 1,500 MG in SODIUM CHLORIDE 0.9% 250 ML IVPB ONE (18:30)
--- NOTE | 2020-08-03 22:19 | P.HPIM ---
History of Present Illness H&P Date: 08/03/20 Chief Complaint: Hypoxemia 74-year-old female with arthritis recent right hip total arthroplasty less than a month ago, recent diagnosis of COPD not on home oxygen, paroxysmal A. fib, hypertension Patient comes in today due to progressive exertional dyspnea over the past co uple days today her visiting nurse noticed that her oxygen level was down to 88% for which she was sent to the urgent care who confirmed her low oxygen level and suggested that she goes to the ER for evaluation. Patient denies any fevers she reports the high H highest he reported the home was 99 Fahrenheit, denies any chills denies any loss of taste or smell sensation denies any diarrhea or vomit ing but reports occasional nausea, denies any sore throat runny nose denies any sick contacts. She notices that her voice is becoming hoarse today since she came to the hospital. Otherwise she was admitted about 2 weeks ago to the hospital which is 10 days after her surgery for pneumonia and UTI and that's when she was diagnosed with COPD. She was discharged with antibiotics and inhalers and oral prednisone. Patient did well initially and then her symptoms worsen again over the past couple days she admits to nonproductive cough and exertional dyspnea upon ambulation otherwise denies any leg muscle tenderness she had some swelling earlier but resolved over the past couple days. She denie s any chest pain denies any abdominal pain In the ED she was found to have an elevated d-dimer for which CT angiogram for chest was performed showed no acute PE however showed progression of possible underlying multilobar pneumonia Patient is compliant with her home meds she's been on Eliquis. Since discharge, she is currently resting in bed on room air. She quit smoking about a month before surgery Review of Systems Pertinent positives as noted in HPI. All other systems were reviewed and are negative Past Medical History Past Medical History: Hyperlipidemia, Hypertension History of Any Multi-Drug Resistant Organisms: None Reported Past Surgical History: Appendectomy, Orthopedic Surgery Additional Past Surgical History / Comment(s): gastric bypass, lumbar fusion (L5) in 2019 Past Anesthesia/Blood Transfusion Reactions: No Reported Reaction Past Psychological History: Depression Smoking Status: Former smoker Past Alcohol Use History: Rare Past Drug Use History: None Reported - Past Family History Father History Unknown: Yes Additional Family Medical History / Comment(s): Patient's Sister. with multiple cancers Medications and Allergies Home Medications Medication Instructions Recorded Confirmed Type Acetaminophen Tab [Tylenol] 500 - 1,000 mg PO Q4-6H PRN 07/15/20 08/03/20 History Apixaban [Eliquis] 2.5 mg PO BID 07/15/20 08/03/20 History Atorvastatin [Lipitor] 20 mg PO HS 07/15/20 08/03/20 History Cholecalciferol [Vitamin D3 (25 2,000 unit PO DAILY 07/15/20 08/03/20 History Mcg = 1000 Iu)] Docusate [Colace] 100 mg PO BID PRN 07/15/20 08/03/20 History FLUoxetine HCL [PROzac] 20 mg PO HS 07/15/20 08/03/20 History FLUoxetine HCL [PROzac] 40 mg PO DAILY 07/15/20 08/03/20 History Fexofenadine HCl [Sushila Allergy] 180 mg PO DAILY 07/15/20 08/03/20 History Gabapentin 300 mg PO DAILY 07/15/20 08/03/20 History Gabapentin 600 mg PO HS 07/15/20 08/03/20 History HYDROcodone/APAP 10-325MG [Bessie 1 - 2 tab PO Q4-6H PRN 07/15/20 08/03/20 History 10-325] Lansoprazole 30 mg PO DAILY 07/15/20 08/03/20 History Melatonin 5 mg PO HS PRN 07/15/20 08/03/20 History Metoprolol Tartrate [Lopressor] 50 mg PO BID 07/15/20 08/03/20 History Multivitamins, Thera [Multivitamin 1 tab PO DAILY 07/15/20 08/03/20 History (formulary)] Ondansetron HCl [Zofran] 8 mg PO TID PRN 07/15/20 08/03/20 History Sennosides [Senna] 17.2 mg PO DAILY PRN 07/15/20 08/03/20 History Vitamin B-12(Unknown Dose) 1 tab PO DAILY 07/15/20 08/03/20 History amLODIPine [Norvasc] 5 mg PO DAILY 07/15/20 08/03/20 History lisinopriL 20 mg PO DAILY 07/15/20 08/03/20 History polyethylene glycoL 3350 [Miralax] 17 gm PO DAILY PRN 07/15/20 08/03/20 History Fluticasone/Vilanterol [Breo 1 puff INHALATION RT-DAILY #0 07/18/20 08/03/20 Rx Ellipta 100-25 Mcg Inhaler] Albuterol Sulfate [Proventil Hfa] 2 puff INHALATION RT-QID PRN 08/03/20 08/03/20 History Allergies Allergy/AdvReac Type Severity Reaction Status Date / Time ciprofloxacin [From Cipro] Allergy Unknown Verified 08/03/20 16:46 clarithromycin [From Biaxin] Allergy Unknown Verified 08/03/20 16:46 ibuprofen [From Motrin] Allergy Unknown Verified 08/03/20 16:46 Sulfa (Sulfonamide Allergy Unknown Verified 08/03/20 16:46 Antibiotics) NSAIDS (Non-Steroidal AdvReac Nausea & Verified 08/03/20 16:46 Anti-Inflamma Vomiting & Diarrhea Physical Exam Vitals: Vital Signs Temp Pulse Resp BP Pulse Ox 08/03/20 19:14 98.0 F 77 18 144/67 95 08/03/20 17:30 81 18 154/68 94 L 08/03/20 16:52 74 08/03/20 16:40 70 08/03/20 16:20 73 20 151/80 95 08/03/20 15:29 98.9 F 68 18 142/69 94 L Intake and Output 08/03/20 08/03/20 08/03/20 06:59 14:59 22:59 Other: Weight 92.079 kg Constitutional: No acute distress, conversant, pleasant Eyes: Anicteric sclerae, moist conjunctiva, Pupils equal round reactive to light ENMT: NC/AT Oropharynx clear, no erythema, or exudates Neck: Supple, FROM, no masses, or JVD No carotid bruits No thyromegaly Lungs: Good breath sounds bilaterally except for small area over the right upper lung with bronchial breathing Clear to percussion Normal respiratory effort, no accessory muscle use Cardiovascular: Heart regular in rate and rhythm, No murmurs, gallops, or rubs No peripheral edema Abdominal: Soft Nontender, no guarding, rebound or rigidity Abdomen moving with respiration Normoactive bowel sounds No hepatomegaly, No splenomegaly No palpable mass No abdominal wall hernia noted Skin: Normal temperature, tone, texture, turgor No induration No subcutaneous nodules No rash, lesions No ulcers Extremities: No digital cyanosis No clubbing Pedal pulses intact and symmetrical Radial pulses intact and symmetrical No calf tenderness Psychiatric: Alert and oriented to person, place and time Appropriate affect fair judgement Neuro Muscles Strength 5/5 in all 4 extremities Sensation to light touch grossly present throughout Cranial nerves II-XII grossly intact No focal sensory deficits Lymphatics: no palpable cervical or supraclavicular , or inguinal lymph nodes Results CBC & Chem 7: 08/03/20 16:07 08/03/20 16:07 Labs: Abnormal Lab Results - Last 24 Hours (Table) 08/03/20 08/03/20 Range/Units 16:07 16:07 D-Dimer 0.81 H (<0.60) mg/L FEU Sodium 136 L (137-145) mmol/L Alkaline Phosphatase 149 H (38-126) U/L Albumin 3.3 L (3.5-5.0) g/dL Assessment and Plan Assessment: Acute hypoxemic respiratory failure secondary to underlying multilobar pneumonia rule out Covid 19 Newly diagnosed COPD not on home oxygen Contact and droplet precaution Follow-up Covid testing Follow-up blood cultures Pulmonary consult empiric antibiotic antibiotic treatment with Vanco and Zosyn for possible underlying multilobar pneumonia Continue with inhalers and DuoNeb's when necessary Tylenol for fever Supplemental oxygen as needed to keep O2 sat above 92% Chronic conditions Hypertension resume home meds Hyperlipidemia Paroxysmal A. fib currently rate controlled Recent right hip total arthroplasty about a month ago continue with Eliquis for DVT prophylaxis Preformed a thorough record review from recent hospitalization patient was hospitalized twice over the past month about a month ago for right total hip replacement, and then 10 days later she presented and diagnosed with sepsis secondary to pneumonia and UTI and was diagnosed with COPD during that hospital course she was discharged about 2 weeks ago and back now with hypoxemia CODE STATUS: Full code DVT prophylaxis: On Eliquis postop hip replacement Discussed with: Patient, ER, RN Anticipated length of stay more than [address]: Home A total of 75 minutes was spent on the care of this complex patient more than 50% of the time was spent in counseling and care coordination.
[2020-08-03 22:30] LABS: C Reactive Protein 79.2 mg/L (<10.0)
[2020-08-03] MEDS: GABAPENTIN 300 MG CAP PO SCH (23:14)
[2020-08-03] MEDS: METOPROLOL TARTRATE 50 MG TAB PO SCH (23:15)
[2020-08-03] MEDS: ATORVASTATIN 20 MG TAB PO SCH (23:15)
[2020-08-03] MEDS: FLUoxetine HCL 20 MG CAP PO SCH (23:15)
[2020-08-03] MEDS: APIXABAN 2.5 MG TABLET PO SCH (23:15)
[2020-08-03] MEDS: HYDROcodone/APAP 10-325MG 1 EACH TAB PO PRN (23:28)
[2020-08-04] MEDS ORDERED: PIPERACILLIN-TAZOBACTAM 3.375 GM in SODIUM CHLORIDE 0.9% 100 ML IVPB SCH ×2 (03:00→13:11)
[2020-08-04 04:32] LABS: Ferritin 273.7 ng/mL (10.0-291.0)
[2020-08-04] MEDS: HYDROcodone/APAP 10-325MG 1 EACH TAB PO PRN ×3 (05:53→19:26)
[2020-08-04 06:17] LABS: Basophils % (A) 0 %; Eosinophils # (A) 0.4 k/uL (0-0.7); Eosinophils % (A) 6 %; HCT 32.6 % (34.0-46.0); HGB 10.2 gm/dL (11.4-16.0); Hypochromasia Moderate; Lymphocytes # (A) 2.1 k/uL (1.0-4.8); Lymphocytes % (A) 30 %; MCH 29.3 pg (25.0-35.0); MCHC 31.3 g/dL (31.0-37.0); MCV 93.7 fL (80.0-100.0); Monocytes # (A) 0.5 k/uL (0-1.0); Monocytes % (A) 6 %; Neutrophils # (A) 3.9 k/uL (1.3-7.7); Neutrophils % (A) 56 %; Platelet Count 237 k/uL (150-450); RBC 3.48 m/uL (3.80-5.40); RDW 15.2 % (11.5-15.5)
[2020-08-04] MEDS: FLUoxetine HCL 20 MG CAP PO SCH ×2 (08:12→20:24)
[2020-08-04] MEDS: LORATADINE 10 MG TAB PO SCH (08:14)
[2020-08-04] MEDS: CHOLECALCIFEROL 1,000 UNIT TAB PO SCH (08:15)
[2020-08-04] MEDS: lisinopriL 20 MG TAB PO SCH (08:15)
[2020-08-04] MEDS: METOPROLOL TARTRATE 50 MG TAB PO SCH ×2 (08:15→20:24)
[2020-08-04] MEDS: PANTOPRAZOLE 40 MG TABLET PO SCH (08:16)
[2020-08-04] MEDS: GABAPENTIN 300 MG CAP PO SCH ×2 (08:16→20:24)
[2020-08-04] MEDS: amLODIPine 5 MG TAB PO SCH (08:16)
[2020-08-04] MEDS: MULTIVITAMINS, THERA 1 EACH TAB PO SCH (08:16)
[2020-08-04] MEDS: APIXABAN 2.5 MG TABLET PO SCH ×2 (08:16→20:24)
[2020-08-04] MEDS: CYANOCOBALAMIN 500 MCG TAB PO SCH (08:17)
[2020-08-04] MEDS: SYMBICORT 80-4.5 MCG INHALER INHALATION SCH ×2 (08:42→19:38)
[2020-08-04 09:29] LABS: African American GFR (CKD) 73.5 (60.0-200.0); Anion Gap 10.5 mmol/L (4.00-12.00); BUN/Creat Ratio 15.56 Ratio (12.00-20.00); Calcium 8.2 mg/dL (8.7-10.3); Carbon Dioxide 27.5 mmol/L (21.6-31.8); Non-African American GFR(CKD) 63.4 (60.0-200.0); Potassium 3.9 mmol/L (3.5-5.5)
[2020-08-04] MEDS ORDERED: VANCOMYCIN 1,500 MG in SODIUM CHLORIDE 0.9% 250 ML IVPB SCH ×2 (10:00→13:15)
--- NOTE | 2020-08-04 14:29 | P.CNPUL ---
History of Present Illness Consult date: 08/04/20 Reason for consult: pneumonia History of present illness: 74-year-old female patient who is coming in to the hospital for some shortness of breath and there is obvious concern for an ongoing pneumonia. During her last hospitalization back in June 2020, I thought that the patient may have an underlying coronavirus Elier 19 infection as the patient had some patchy bilateral groundglass pulmonary infiltrates. Nevertheless, she tested negative for coronavirus Covid19. She was released home. She presents again with some limited shortness of breath. No reported fever. No chills. No leukocytosis. The pro calcitonin level is still low at 0.07. Note that during her last hospitalization, the patient was discharged home on a course of Ceftin 500 mg by mouth twice a day for 3 days and a prednisone burst taper which she completed. During this current admission, a computed tomography scan of the chest was repeated and the CAT scan showed some limited groundglass changes more so on the right and the findings on the left have cleared. Overall, I think there is some clearing in the pulmonary infiltrates described. The coronavirus Covid 19 testing will be repeated for now. The patient is currently on room air oxygen. She has no pleurisy. No hemoptysis. She has some increase in lower extremity edema. No sick contacts. No nausea vomiting or diarrhea. Note that her original presentation was following a Surgery that the patient had a done at [facility]. She has no reported history of aspiration. She has chronic reflux. No exposure to birds or any other industrial pneumo toxic agents. She is recovering nicely from her head surgery. She is ambulating. Note that the patient quit smoking a month prior to her hip surgery. Review of Systems Constitutional: Reports weakness, Denies chills, Denies fever Eyes: denies blurred vision, denies pain Ears, nose, mouth and throat: Denies headache, Denies sore throat Cardiovascular: Denies chest pain, Denies shortness of breath Respiratory: Reports cough, Reports cough with sputum, Reports dyspnea Gastrointestinal: Denies abdominal pain, Denies diarrhea, Denies nausea, Denies vomiting Genitourinary: Denies dysuria, Denies hematuria Musculoskeletal: Denies myalgias Integumentary: Denies pruritus, Denies rash Neurological: Denies numbness, Denies weakness Psychiatric: Denies anxiety, Denies depression Endocrine: Denies fatigue, Denies weight change Past Medical History Past Medical History: Hyperlipidemia, Hypertension History of Any Multi-Drug Resistant Organisms: None Reported Past Surgical History: Appendectomy, Orthopedic Surgery Additional Past Surgical History / Comment(s): gastric bypass, lumbar fusion (L5) in 2019 Past Anesthesia/Blood Transfusion Reactions: No Reported Reaction Past Psychological History: Depression Smoking Status: Former smoker Past Alcohol Use History: Rare Past Drug Use History: None Reported - Past Family History Father History Unknown: Yes Additional Family Medical History / Comment(s): Patient's Sister. with multiple cancers Medications and Allergies Home Medications Medication Instructions Recorded Confirmed Type Acetaminophen Tab [Tylenol] 500 - 1,000 mg PO Q4-6H PRN 07/15/20 08/03/20 History Apixaban [Eliquis] 2.5 mg PO BID 07/15/20 08/03/20 History Atorvastatin [Lipitor] 20 mg PO HS 07/15/20 08/03/20 History Cholecalciferol [Vitamin D3 (25 2,000 unit PO DAILY 07/15/20 08/03/20 History Mcg = 1000 Iu)] Docusate [Colace] 100 mg PO BID PRN 07/15/20 08/03/20 History FLUoxetine HCL [PROzac] 20 mg PO HS 07/15/20 08/03/20 History FLUoxetine HCL [PROzac] 40 mg PO DAILY 07/15/20 08/03/20 History Fexofenadine HCl [Sushila Allergy] 180 mg PO DAILY 07/15/20 08/03/20 History Gabapentin 300 mg PO DAILY 07/15/20 08/03/20 History Gabapentin 600 mg PO HS 07/15/20 08/03/20 History HYDROcodone/APAP 10-325MG [Compton 1 - 2 tab PO Q4-6H PRN 07/15/20 08/03/20 History 10-325] Lansoprazole 30 mg PO DAILY 07/15/20 08/03/20 History Melatonin 5 mg PO HS PRN 07/15/20 08/03/20 History Metoprolol Tartrate [Lopressor] 50 mg PO BID 07/15/20 08/03/20 History Multivitamins, Thera [Multivitamin 1 tab PO DAILY 07/15/20 08/03/20 History (formulary)] Ondansetron HCl [Zofran] 8 mg PO TID PRN 07/15/20 08/03/20 History Sennosides [Senna] 17.2 mg PO DAILY PRN 07/15/20 08/03/20 History Vitamin B-12(Unknown Dose) 1 tab PO DAILY 07/15/20 08/03/20 History amLODIPine [Norvasc] 5 mg PO DAILY 07/15/20 08/03/20 History lisinopriL 20 mg PO DAILY 07/15/20 08/03/20 History polyethylene glycoL 3350 [Miralax] 17 gm PO DAILY PRN 07/15/20 08/03/20 History Fluticasone/Vilanterol [Breo 1 puff INHALATION RT-DAILY #0 07/18/20 08/03/20 Rx Ellipta 100-25 Mcg Inhaler] Albuterol Sulfate [Proventil Hfa] 2 puff INHALATION RT-QID PRN 08/03/20 08/03/20 History Allergies Allergy/AdvReac Type Severity Reaction Status Date / Time ciprofloxacin [From Cipro] Allergy Unknown Verified 08/03/20 16:46 clarithromycin [From Biaxin] Allergy Unknown Verified 08/03/20 16:46 ibuprofen [From Motrin] Allergy Unknown Verified 08/03/20 16:46 Sulfa (Sulfonamide Allergy Unknown Verified 08/03/20 16:46 Antibiotics) NSAIDS (Non-Steroidal AdvReac Nausea & Verified 08/03/20 16:46 Anti-Inflamma Vomiting & Diarrhea Physical Exam Vitals: Vital Signs Temp Pulse Pulse Resp BP BP Pulse Ox 08/04/20 09:12 72 08/04/20 09:04 72 08/04/20 07:00 98.7 F 59 L 18 108/65 91 L 08/04/20 02:33 98.4 F 59 L 14 108/64 92 L 08/03/20 23:20 16 08/03/20 21:20 98.3 F 79 16 111/59 94 L 08/03/20 19:14 98.0 F 77 18 144/67 95 08/03/20 17:30 81 18 154/68 94 L 08/03/20 16:52 74 08/03/20 16:40 70 08/03/20 16:20 73 20 151/80 95 08/03/20 15:29 98.9 F 68 18 142/69 94 L Intake and Output 08/03/20 08/04/20 08/04/20 22:59 06:59 14:59 Intake Total 550 236 Balance 550 236 Intake: Intake, IV Titration 250 Amount Vancomycin 1,500 mg In 250 Sodium Chloride 0.9% 250 ml @ 125 mls/hr IVPB Q16H [facility] Rx#:[id number] Oral 300 236 Other: # Voids 1 1 # Bowel Movements 1 Weight 92.079 kg GENERAL EXAM: Alert, very pleasant, 74-year-old white female, appears pale, but no acute distress currently on room air oxygen with a pulse ox of 91% HEAD: Normocephalic/atraumatic. EYES: Normal reaction of pupils, equal size. Conjunctiva pink, sclera white. NOSE: Clear with pink turbinates. THROAT: No erythema or exudates. NECK: No masses, no JVD, no thyroid enlargement, no adenopathy. CHEST: No chest wall deformity. Symmetrical expansion. LUNGS: Equal air entry with no crackles, wheeze, rhonchi or dullness. CVS: Regular rate and rhythm, normal S1 and S2, no gallops, no murmurs, no rubs ABDOMEN: Soft, nontender. No hepatosplenomegaly, normal bowel sounds, no guarding or rigidity. EXTREMITIES: No clubbing, no edema, no cyanosis, 2+ pulses and upper and lower extremities. MUSCULOSKELETAL: Muscle strength and tone normal. SPINE: No scoliosis or deformity SKIN: No rashes CENTRAL NERVOUS SYSTEM: Alert and oriented -3. No focal deficits, tone is normal in all 4 extremities. PSYCHIATRIC: Alert and oriented -3. Appropriate affect. Intact judgment and insight. Results - Laboratory Findings CBC and BMP: 08/04/20 05:56 08/04/20 05:56 PT/INR, D-dimer PT 9.8 sec (9.0-12.0) 08/03/20 16:07 INR 0.9 (<1.2) 08/03/20 16:07 D-Dimer 0.81 mg/L FEU (<0.60) H 08/03/20 16:07 Abnormal lab findings: Abnormal Labs 08/03/20 08/03/20 08/03/20 16:07 16:07 18:08 RBC Hgb Hct ESR D-Dimer 0.81 H Sodium 136 L Calcium Alkaline Phosphatase 149 H Lactate Dehydrogenase 796 H C-Reactive Protein 79.2 H Albumin 3.3 L 08/04/20 08/04/20 08/04/20 05:56 05:56 05:56 RBC 3.48 L Hgb 10.2 L Hct 32.6 L ESR 129 H D-Dimer Sodium Calcium 8.2 L Alkaline Phosphatase Lactate Dehydrogenase C-Reactive Protein Albumin - Diagnostic Findings Chest x-ray: image reviewed CT scan - chest: image reviewed Assessment and Plan Plan: 1 bilateral nonspecific groundglass pulmonary infiltrates, rule out viral pneumonitis, rule out hypersensitivity pneumonitis or any other exposure causing this type of an abnormal pulmonary infiltrates. I reviewed the CAT scan from June 2020 and compared to the CAT scan of the chest that was done on 08/03/2020. I would say there is interval improvement in the bilateral pulmonary infiltrates and I do not think there is any significant progression. In fact the left lung infiltrates/findings are improved considerably. The patient's previous coronavirus Covid 19 testing was negative. No overall suspicion was quite high. I think it's reasonable to repeat the test. Highly doubt an acute bacterial infection specially the patient's pro calcitonin level is low and the patient is afebrile without any significant leukocytosis. 2 acute hypoxic respiratory failure currently on room air oxygen with a pulse ox of above 90% 3 right hip replacement 4 hypertension 5 hyperlipidemia 6 history of gastric bypass surgery 7 a former smoker 8 COPD Plan Recheck coronavirus Covid 19 testing by PCR Stop vancomycin and Zosyn Put the patient on prednisone burst taper starting with 40 mg Check THOMAS rheumatoid factor sed rate Watch for any signs of an aspiration which could potentially cause this type of break bilateral pulmonary infiltrates Continue Eliquis May consider bronchoscopy if the findings remain unclear.
--- NOTE | 2020-08-04 16:47 | P.PN ---
Subjective Progress Note Date: 08/04/20 Patient was seen and examined. No acute events overnight. Patient reports considerable improvement in her breathing since admission. Plans a dry cough. She denies any chest pain or palpitations. No nausea or vomiting. No fever or chills. Objective - Vital Signs Vital signs: Vital Signs Temp 98.7 F 08/04/20 07:00 Pulse 72 08/04/20 09:12 Resp 18 08/04/20 07:00 BP 108/65 08/04/20 07:00 Pulse Ox 91 L 08/04/20 07:00 Intake & Output 08/03/20 08/04/20 08/04/20 18:59 06:59 18:59 Intake Total 550 236 Balance 550 236 Weight 92.079 kg Intake: Intake, IV Titration 250 Amount Vancomycin 1,500 mg In 250 Sodium Chloride 0.9% 250 ml @ 125 mls/hr IVPB Q16H [facility] Rx#:[id number] Oral 300 236 Other: # Voids 1 # Bowel Movements 1 - Exam General: [non toxic], [no distress], [appears at stated age] Derm: [warm], [dry] Head: [atraumatic], [normocephalic], [symmetric] Eyes: [EOMI], [no lid lag], [anicteric sclera] Mouth: [no lip lesion], [mucus membranes moist] Cardiovascular: [S1S2 reg], [no murmur], [positive posterior tibial pulse bilateral], Lungs: [Decreased breath sounds bilateral], [no rhonchi, no rales] , [no accessory muscle use] Abdominal: [soft], [ nontender to palpation], [no guarding], [no appreciable organomegaly] Ext: [no gross muscle atrophy], [no edema], [no contractures] Neuro: [no focal neuro deficits] Psych: [Alert], [oriented], [appropriate affect] - Labs CBC & Chem 7: 08/04/20 05:56 08/04/20 05:56 Labs: Abnormal Lab Results - Last 24 Hours (Table) 08/03/20 08/03/20 08/03/20 Range/Units 16:07 16:07 18:08 RBC (3.80-5.40) m/uL Hgb (11.4-16.0) gm/dL Hct (34.0-46.0) % ESR (0-20) mm/hr D-Dimer 0.81 H (<0.60) mg/L FEU Sodium 136 L (137-145) mmol/L Calcium (8.7-10.3) mg/dL Alkaline Phosphatase 149 H (38-126) U/L Lactate Dehydrogenase 796 H (313-618) U/L C-Reactive Protein 79.2 H (<10.0) mg/L Albumin 3.3 L (3.5-5.0) g/dL 08/04/20 08/04/20 08/04/20 Range/Units 05:56 05:56 05:56 RBC 3.48 L (3.80-5.40) m/uL Hgb 10.2 L (11.4-16.0) gm/dL Hct 32.6 L (34.0-46.0) % ESR 129 H (0-20) mm/hr D-Dimer (<0.60) mg/L FEU Sodium (137-145) mmol/L Calcium 8.2 L (8.7-10.3) mg/dL Alkaline Phosphatase (38-126) U/L Lactate Dehydrogenase (313-618) U/L C-Reactive Protein (<10.0) mg/L Albumin (3.5-5.0) g/dL Assessment and Plan Assessment: Acute hypoxic respiratory failure secondary to underlying COVID 19 versus aspiration pneumonitis COPD not on home O2 Hypertension Paroxysmal atrial fibrillation Recent right hip total arthroplasty As seen on CT chest. Concerns for aspiration pneumonitis or pulmonary fibrosis. CRP elevated. D-dimer elevated. Pro-calcitonin negative. Plans: Antibiotics discontinued by pulmonology. Continue Symbicort. Albuterol neb as needed for shortness of breath and wheezing. Started on prednisone by pulmonology. Supplemental O2 to maintain O2 saturation greater than 92%. Follow COVID 19 testing. Follow THOMAS. Follow ESR. Telemetry monitoring. Follow swallow eval. Plans: Management as above. BP 108/65. Plans: Continue amlodipine, lisinopril and metoprolol. Monitor vitals, adjust medications if necessary. Plans: Rate controlled. Continue metoprolol. Continue Eliquis. Plans: Continue Eliquis.
[2020-08-04] MEDS: predniSONE 20 MG TAB PO SCH (17:33)
[2020-08-04] MEDS: ATORVASTATIN 20 MG TAB PO SCH (20:24)
[2020-08-04] MEDS: MELATONIN 5 MG TABLET PO PRN (20:25)
[2020-08-05] MEDS: HYDROcodone/APAP 10-325MG 1 EACH TAB PO PRN ×4 (05:52→23:06)
[2020-08-05 06:46] LABS: Basophils % (A) 0 %; Eosinophils # (A) 0.1 k/uL (0-0.7); Eosinophils % (A) 2 %; HCT 35.7 % (34.0-46.0); HGB 10.9 gm/dL (11.4-16.0); Hypochromasia Moderate; Lymphocytes # (A) 0.8 k/uL (1.0-4.8); Lymphocytes % (A) 14 %; MCH 28.4 pg (25.0-35.0); MCHC 30.5 g/dL (31.0-37.0); MCV 93.1 fL (80.0-100.0); Mean Platelet Volume 6.7; Monocytes # (A) 0.2 k/uL (0-1.0); Monocytes % (A) 3 %; Neutrophils # (A) 4.8 k/uL (1.3-7.7); Neutrophils % (A) 81 %; Platelet Count 269 k/uL (150-450); RBC 3.84 m/uL (3.80-5.40); RDW 15.1 % (11.5-15.5); WBC 5.9 k/uL (3.8-10.6)
[2020-08-05] MEDS: SYMBICORT 80-4.5 MCG INHALER INHALATION SCH ×2 (07:15→19:57)
[2020-08-05] MEDS: GABAPENTIN 300 MG CAP PO SCH ×2 (08:34→20:32)
[2020-08-05] MEDS: METOPROLOL TARTRATE 50 MG TAB PO SCH ×2 (08:34→20:32)
[2020-08-05] MEDS: MULTIVITAMINS, THERA 1 EACH TAB PO SCH (08:34)
[2020-08-05] MEDS: amLODIPine 5 MG TAB PO SCH (08:34)
[2020-08-05] MEDS: predniSONE 20 MG TAB PO SCH (08:35)
[2020-08-05] MEDS: CHOLECALCIFEROL 1,000 UNIT TAB PO SCH (08:35)
[2020-08-05] MEDS: CYANOCOBALAMIN 500 MCG TAB PO SCH (08:35)
[2020-08-05] MEDS: APIXABAN 2.5 MG TABLET PO SCH ×2 (08:36→20:31)
[2020-08-05] MEDS: FLUoxetine HCL 20 MG CAP PO SCH ×2 (08:36→20:32)
[2020-08-05] MEDS: lisinopriL 20 MG TAB PO SCH (08:36)
[2020-08-05] MEDS: PANTOPRAZOLE 40 MG TABLET PO SCH (08:36)
[2020-08-05] MEDS: LORATADINE 10 MG TAB PO SCH (08:39)
[2020-08-05 10:17] LABS: African American GFR (CKD) 99.6 (60.0-200.0); Albumin 3.4 g/dL (3.80-4.90); Albumin/Globulin Ratio 1.62 (1.60-3.17); Anion Gap 6.1 mmol/L (4.00-12.00); BUN/Creat Ratio 18.57 Ratio (12.00-20.00); Calcium 8.6 mg/dL (8.7-10.3); Carbon Dioxide 25.9 mmol/L (21.6-31.8); Globulin 2.1 g/dL (1.6-3.3); Potassium 4.5 mmol/L (3.5-5.5); Total Bilirubin 0.3 mg/dL (0.3-1.2); Total Protein 5.5 g/dL (6.2-8.2)
[2020-08-05 10:55] LABS: Erythrocyte Sedimentation Rate 58 mm/Hr (0-30)
--- NOTE | 2020-08-05 13:31 | P.PN ---
Subjective Progress Note Date: 08/05/20 Principal diagnosis: Bilateral nonspecific groundglass pulmonary infiltrates 74-year-old female patient who is coming in to the hospital for some shortness of breath and there is obvious concern for an ongoing pneumonia. During her last hospitalization back in June 2020, I thought that the patient may have an underlying coronavirus Elier 19 infection as the patient had some patchy bilateral groundglass pulmonary infiltrates. Nevertheless, she tested negative for coronavirus Covid19. She was released home. She presents again with some limited shortness of breath. No reported fever. No chills. No leukocytosis. The pro calcitonin level is still low at 0.07. Note that during her last hospitalization, the patient was discharged home on a course of Ceftin 500 mg by mouth twice a day for 3 days and a prednisone burst taper which she completed. During this current admission, a computed tomography scan of the chest was repeated and the CAT scan showed some limited groundglass changes more so on the right and the findings on the left have cleared. Overall, I think there is some clearing in the pulmonary infiltrates described. The coronavirus Covid 19 t esting will be repeated for now. The patient is currently on room air oxygen. She has no pleurisy. No hemoptysis. She has some increase in lower extremity edema. No sick contacts. No nausea vomiting or diarrhea. Note that her original presentation was following a Surgery that the patient had a done at [facility]. She has no reported history of aspiration. She has chronic reflux. No exposure to birds or any other industrial pneumo toxic agents. She is recovering nicely from her head surgery. She is ambulating. Note that the patient quit smoking a month prior to her hip surgery. On 08/05/2020 patient seen in follow-up on general medical surgical floor. Her Covid PCR came back negative, patient has been afebrile since admission, she is on room air, her pulse ox is 94%, hemodynamically stable, her breathing is comfortable, denies any chest complaints, denies any dyspnea or cough, she is awake and oriented 3, resting comfortably in bed, pro calcitonin was low at 0.07, we stopped all antibiotics yesterday. The groundglass opacities seen on the CT scan of the chest are nonspecific, doubt underlying infectious etiology, THOMAS screen came back positive suggesting possibility of connective tissue etiology. We still suspect possibility of COVID 19 infection despite the 2 negative PCR's. We'll send the antibiotic tests today. She's had no nausea or vomiting, no abdominal pain no diarrhea Objective - Vital Signs Vital signs: Vital Signs Temp 98.2 F 08/05/20 07:00 Pulse 76 08/05/20 08:00 Resp 16 08/05/20 08:00 BP 126/70 08/05/20 07:00 Pulse Ox 94 L 08/05/20 07:00 Intake & Output 08/04/20 08/05/20 08/05/20 18:59 06:59 18:59 Intake Total 708 360 Balance 708 360 Intake: Oral 708 360 Other: # Voids 1 3 1 - Exam GENERAL EXAM: Alert, very pleasant, 74-year-old white female on room air, with pulse ox of 94% comfortable in no apparent distress. HEAD: Normocephalic/atraumatic. EYES: Normal reaction of pupils, equal size. Conjunctiva pink, sclera white. NOSE: Clear with pink turbinates. THROAT: No erythema or exudates. NECK: No masses, no JVD, no thyroid enlargement, no adenopathy. CHEST: No chest wall deformity. Symmetrical expansion. LUNGS: Equal air entry with no crackles, wheeze, rhonchi or dullness. CVS: Regular rate and rhythm, normal S1 and S2, no gallops, no murmurs, no rubs ABDOMEN: Soft, nontender. No hepatosplenomegaly, normal bowel sounds, no guarding or rigidity. EXTREMITIES: No clubbing, no edema, no cyanosis, 2+ pulses and upper and lower extremities. MUSCULOSKELETAL: Muscle strength and tone normal. SPINE: No scoliosis or deformity SKIN: No rashes CENTRAL NERVOUS SYSTEM: Alert and oriented -3. No focal deficits, tone is normal in all 4 extremities. PSYCHIATRIC: Alert and oriented -3. Appropriate affect. Intact judgment and insight. - Labs CBC & Chem 7: 08/05/20 06:29 08/05/20 06:29 Labs: Abnormal Lab Results - Last 24 Hours (Table) 08/04/20 08/05/20 08/05/20 Range/Units 05:56 06:29 06:29 Hgb 10.9 L (11.4-16.0) gm/dL MCHC 30.5 L (31.0-37.0) g/dL Lymphocytes # 0.8 L (1.0-4.8) k/uL ESR 58 H (0-30) mm/Hr Glucose 165 H (70-110) mg/dL Calcium 8.6 L (8.7-10.3) mg/dL Alkaline Phosphatase 146 H (41-126) U/L Total Protein 5.5 L (6.2-8.2) g/dL Albumin 3.40 L (3.80-4.90) g/dL THOMAS Screen POSITIVE H (NEGATIVE) Microbiology - Last 24 Hours (Table) 08/03/20 18:41 Blood Culture - Preliminary Blood No Growth after 24 hours Assessment and Plan Plan: Assessment: 1 bilateral nonspecific groundglass pulmonary infiltrates, rule out viral pneumonitis, rule out hypersensitivity pneumonitis or any other exposure causing this type of an abnormal pulmonary infiltrates. I reviewed the CAT scan from June 2020 and compared to the CAT scan of the chest that was done on 08/03/2020. I would say there is interval improvement in the bilateral pulmonary infiltrates and I do not think there is any significant progression. In fact the left lung infiltrates/findings are improved considerably. The patient's previous coronavirus Covid 19 testing was negative. No overall suspicion was quite high. I think it's reasonable to repeat the test. Highly doubt an acute bacterial infection specially the patient's pro calcitonin level is low and the patient is afebrile without any significant leukocytosis. THOMAS was again negative screen came back elevated raising possibility of connective tissue etiology, COVID 19 negative 2 acute hypoxic respiratory failure currently on room air oxygen with a pulse ox of above 90% 3 right hip replacement 4 hypertension 5 hyperlipidemia 6 history of gastric bypass surgery 7 a former smoker 8 COPD Plan: COVID 19 PCR was again negative, we will send the COVID antibody test, as a suspicion for past COVID 19 infection with residual groundglass infiltrates. We will obtain LAURENT antibodies, THOMAS was elevated suggesting possibility of connective tissue etiology for groundglass opacities seen on the CT chest, vital signs have been stable, patient has had no fever or chills, doubt possibility of bacterial infection, no cough or congestion, no chest pain. Increase activity as tolerated. I performed a history & physical examination of the patient and discussed their management with my nurse practitioner, Soledad Luther. I reviewed the nurse practitioner's note and agree with the documented findings and plan of care. Lung sounds are positive for diminished breath sounds. The findings and the impression was discussed with the patient. I attest to the documentation by the nurse practitioner. Time with Patient: Less than 30
[2020-08-05 16:32] LABS: Anti-Smith Ab Interp NEGATIVE (NEGATIVE)
--- NOTE | 2020-08-05 17:01 | P.PN ---
Subjective Progress Note Date: 08/05/20 patient was seen and examined. No acute events overnight. Daughter at bedside. Patient reports slight improvement in her breathing. She denies any chest pain or palpitations. No nausea or vomiting. No fever or chills. Objective - Vital Signs Vital signs: Vital Signs Temp 98.4 F 08/05/20 15:00 Pulse 69 08/05/20 15:00 Resp 16 08/05/20 16:00 BP 157/79 08/05/20 15:00 Pulse Ox 93 L 08/05/20 16:28 Intake & Output 08/04/20 08/05/20 08/05/20 18:59 06:59 18:59 Intake Total 708 560 Balance 708 560 Intake: Oral 708 560 Other: # Voids 1 3 1 # Bowel Movements 1 - Exam General: [non toxic], [no distress], [appears at stated age] Derm: [warm], [dry] Head: [atraumatic], [normocephalic], [symmetric] Eyes: [EOMI], [no lid lag], [anicteric sclera] Mouth: [no lip lesion], [mucus membranes moist] Cardiovascular: [S1S2 reg], [no murmur], [positive posterior tibial pulse bilateral], Lungs: [Decreased breath sounds bilateral], [no rhonchi, no rales] , [no accessory muscle use] Abdominal: [soft], [ nontender to palpation], [no guarding], [no appreciable organomegaly] Ext: [no gross muscle atrophy], [no edema], [no contractures] Neuro: [no focal neuro deficits] Psych: [Alert], [oriented], [appropriate affect] - Labs CBC & Chem 7: 08/05/20 06:29 08/05/20 06:29 Labs: Abnormal Lab Results - Last 24 Hours (Table) 08/05/20 08/05/20 Range/Units 06:29 06:29 Hgb 10.9 L (11.4-16.0) gm/dL MCHC 30.5 L (31.0-37.0) g/dL Lymphocytes # 0.8 L (1.0-4.8) k/uL ESR 58 H (0-30) mm/Hr Glucose 165 H (70-110) mg/dL Calcium 8.6 L (8.7-10.3) mg/dL Alkaline Phosphatase 146 H (41-126) U/L Total Protein 5.5 L (6.2-8.2) g/dL Albumin 3.40 L (3.80-4.90) g/dL Microbiology - Last 24 Hours (Table) 08/03/20 18:41 Blood Culture - Preliminary Blood No Growth after 24 hours Assessment and Plan Assessment: Acute hypoxic respiratory failure secondary to underlying COVID 19 versus aspiration pneumonitis versus autoimmune disease COPD not on home O2 Hypertension Paroxysmal atrial fibrillation Recent right hip total arthroplasty As seen on CT chest. Concerns for aspiration pneumonitis or pulmonary fibrosis. CRP and ESR elevated. D-dimer elevated. THOMAS elevated. Pro-calcitonin negative. Plans: Antibiotics discontinued by pulmonology. Continue Symbicort. Albuterol neb as needed for shortness of breath and wheezing. Started on prednisone by pulmonology. Supplemental O2 to maintain O2 saturation greater than 92%. Follow COVID 19 repeat testing. Follow CHAPIN levels, DS DNA Ab, RF Ab, Sc 70 Ab, SSA and SSB Ab. Telemetry monitoring. Follow Pulmonology recommendations. Plans: Management as above. BP 157/79. Plans: Continue amlodipine, lisinopril and metoprolol. Monitor vitals, adjust medications if necessary. Plans: Rate controlled. Continue metoprolol. Continue Eliquis. Plans: Continue Eliquis.
[2020-08-05 20:11] VITALS: RESP 20
[2020-08-05] MEDS: ATORVASTATIN 20 MG TAB PO SCH (20:31)
[2020-08-05] MEDS: MELATONIN 5 MG TABLET PO PRN (23:07)
[2020-08-06 03:10] VITALS: TEMP 97.8
[2020-08-06] MEDS: HYDROcodone/APAP 10-325MG 1 EACH TAB PO PRN ×2 (06:02→11:19)
[2020-08-06 08:06] VITALS: BP 135/68; PULSE 55
[2020-08-06] MEDS: METOPROLOL TARTRATE 50 MG TAB PO SCH (08:18)
[2020-08-06] MEDS: FLUoxetine HCL 20 MG CAP PO SCH (08:18)
[2020-08-06] MEDS: PANTOPRAZOLE 40 MG TABLET PO SCH (08:18)
[2020-08-06] MEDS: CYANOCOBALAMIN 500 MCG TAB PO SCH (08:18)
[2020-08-06] MEDS: APIXABAN 2.5 MG TABLET PO SCH (08:18)
[2020-08-06] MEDS: amLODIPine 5 MG TAB PO SCH (08:18)
[2020-08-06] MEDS: CHOLECALCIFEROL 1,000 UNIT TAB PO SCH (08:18)
[2020-08-06] MEDS: GABAPENTIN 300 MG CAP PO SCH (08:18)
[2020-08-06] MEDS: lisinopriL 20 MG TAB PO SCH (08:18)
[2020-08-06] MEDS: MULTIVITAMINS, THERA 1 EACH TAB PO SCH (08:18)
[2020-08-06] MEDS: predniSONE 20 MG TAB PO SCH (08:19)
[2020-08-06] MEDS: LORATADINE 10 MG TAB PO SCH (08:31)
[2020-08-06] MEDS: SYMBICORT 80-4.5 MCG INHALER INHALATION SCH (09:10)
[2020-08-06 11:10] LABS: Anti-DNA, DS unit <1.0 IU/mL; DNA Double-Stranded NEGATIVE (NEGATIVE); Scleroderma SC-70 Ab 3.7 AI
[2020-08-06 11:52] LABS: ANA Pattern Speckled
[2020-08-06 13:14] LABS: African American GFR (CKD) 80 (>60 ml/min/1.73 sqM); Anion Gap 8 mmol/L; Blood Urea Nitrogen 17 mg/dL (7-17); Calcium 9.1 mg/dL (8.4-10.2); Carbon Dioxide 23 mmol/L (22-30); Chloride 108 mmol/L (98-107); Glucose 108 mg/dL (74-99); Magnesium 1.8 mg/dL (1.6-2.3); Non-African American GFR(CKD) 69 (>60 ml/min/1.73 sqM); Potassium 4.3 mmol/L (3.5-5.1); Sodium 139 mmol/L (137-145)
--- NOTE | 2020-08-06 13:17 | P.PN ---
Subjective Progress Note Date: 08/06/20 Principal diagnosis: Bilateral nonspecific groundglass pulmonary infiltrates 74-year-old female patient who is coming in to the hospital for some shortness of breath and there is obvious concern for an ongoing pneumonia. During her last hospitalization back in June 2020, I thought that the patient may have an underlying coronavirus Elier 19 infection as the patient had some patchy bilateral groundglass pulmonary infiltrates. Nevertheless, she tested negative for coronavirus Covid19. She was released home. She presents again with some limited shortness of breath. No reported fever. No chills. No leukocytosis. The pro calcitonin level is still low at 0.07. Note that during her last hospitalization, the patient was discharged home on a course of Ceftin 500 mg by mouth twice a day for 3 days and a prednisone burst taper which she completed. During this current admission, a computed tomography scan of the chest was repeated and the CAT scan showed some limited groundglass changes more so on the right and the findings on the left have cleared. Overall, I think there is some clearing in the pulmonary infiltrates described. The coronavirus Covid 19 t esting will be repeated for now. The patient is currently on room air oxygen. She has no pleurisy. No hemoptysis. She has some increase in lower extremity edema. No sick contacts. No nausea vomiting or diarrhea. Note that her original presentation was following a Surgery that the patient had a done at [facility]. She has no reported history of aspiration. She has chronic reflux. No exposure to birds or any other industrial pneumo toxic agents. She is recovering nicely from her head surgery. She is ambulating. Note that the patient quit smoking a month prior to her hip surgery. On 08/05/2020 patient seen in follow-up on general medical surgical floor. Her Covid PCR came back negative, patient has been afebrile since admission, she is on room air, her pulse ox is 94%, hemodynamically stable, her breathing is comfortable, denies any chest complaints, denies any dyspnea or cough, she is awake and oriented 3, resting comfortably in bed, pro calcitonin was low at 0.07, we stopped all antibiotics yesterday. The groundglass opacities seen on the CT scan of the chest are nonspecific, doubt underlying infectious etiology, THOMAS screen came back positive suggesting possibility of connective tissue etiology. We still suspect possibility of COVID 19 infection despite the 2 negative PCR's. We'll send the antibiotic tests today. She's had no nausea or vomiting, no abdominal pain no diarrhea The patient is seen today 08/06/2020 in follow-up on the regular medical floor. She is awake and alert in no acute distress. Resting quite comfortably in bed. No worsening shortness of breath, cough or congestion. She is maintaining O2 saturations in the mid 90s on room air. She's been afebrile. Hemodynamically stable. Blood cultures reveal no growth. Covid antibodies negative. THOMAS screen is negative. Scleroderma antibodies are positive. Objective - Vital Signs Vital signs: Vital Signs Temp 97.8 F 08/06/20 07:00 Pulse 55 L 08/06/20 07:00 Resp 20 08/06/20 08:00 BP 135/68 08/06/20 07:00 Pulse Ox 96 08/06/20 07:00 Intake & Output 08/05/20 08/06/20 08/06/20 18:59 06:59 18:59 Intake Total 560 250 Balance 560 250 Intake: Oral 560 250 Other: # Voids 1 3 # Bowel Movements 1 - Exam GENERAL EXAM: Alert, very pleasant, 74-year-old female patient on room air, with pulse ox of 96% comfortable in no apparent distress. HEAD: Normocephalic/atraumatic. EYES: Normal reaction of pupils, equal size. Conjunctiva pink, sclera white. NOSE: Clear with pink turbinates. THROAT: No erythema or exudates. NECK: No masses, no JVD, no thyroid enlargement, no adenopathy. CHEST: No chest wall deformity. Symmetrical expansion. LUNGS: Equal air entry with no crackles, wheeze, rhonchi or dullness. CVS: Regular rate and rhythm, normal S1 and S2, no gallops, no murmurs, no rubs ABDOMEN: Soft, nontender. No hepatosplenomegaly, normal bowel sounds, no guarding or rigidity. EXTREMITIES: No clubbing, no edema, no cyanosis, 2+ pulses and upper and lower extremities. MUSCULOSKELETAL: Muscle strength and tone normal. SPINE: No scoliosis or deformity SKIN: No rashes CENTRAL NERVOUS SYSTEM: Alert and oriented -3. No focal deficits, tone is normal in all 4 extremities. PSYCHIATRIC: Alert and oriented -3. Appropriate affect. Intact judgment and insight. - Labs CBC & Chem 7: 08/05/20 06:29 08/05/20 06:29 Labs: Abnormal Lab Results - Last 24 Hours (Table) 08/06/20 Range/Units 06:37 Scl-70 Interpretation POSITIVE H (NEGATIVE) Microbiology - Last 24 Hours (Table) 08/03/20 18:41 Blood Culture - Preliminary Blood No Growth after 48 hours Assessment and Plan Assessment: 1 bilateral nonspecific groundglass pulmonary infiltrates, rule out viral pneumonitis, rule out hypersensitivity pneumonitis or any other exposure causing this type of an abnormal pulmonary infiltrates. CAT scan from June 2020 and compared to the CAT scan of the chest that was done on 08/03/2020. There is interval improvement in the bilateral pulmonary infiltrates and there is no significant progression. In fact the left lung infiltrates/findings are improved considerably. The patient's previous coronavirus Covid 19 testing was negative. Repeat Covid 19 testing was negative. Covid Antibody testing negative. Scleroderma screen did come back positive. 2 acute hypoxic respiratory failure currently on room air oxygen with a pulse ox of above 90% 3 right hip replacement 4 hypertension 5 hyperlipidemia 6 history of gastric bypass surgery 7 a former smoker 8 COPD Plan: The patient was seen and evaluated by Dr. Mesa Scleroderma screen positive but no clinical evidence Follow-up in the outpatient setting Cleared for discharge from the pulmonary standpoint Complete a prednisone taper Follow-up in the office in 1-2 weeks' time I, the cosigning physician, performed a history & physical examination of the patient. Lungs sounds are clear. Maintaining good O2 saturations in the 90s on room air. I discussed the assessment and plan of care with my nurse practitioner, Alis Mosqueda. I attest to the above note as dictated by her.
--- NOTE | 2020-08-06 14:40 | P.DS ---
Providers Date of admission: 08/03/20 18:09 Expected date of discharge: 08/06/20 Attending physician: Hua Myers MD Consults: 08/03/20 18:11 Consult Physician Urgent Consulting Provider: Renuka Mesa Consult Reason/Comments: acute hypoxic resp failure, failed treatment for pna Do you want consulting provider notified?: Yes 08/06/20 09:01 Consult Physician Urgent Consulting Provider: Angel Fenton Consult Reason/Comments: NSVT Do you want consulting provider notified?: Yes [facility] Course: 74-year-old female with arthritis recent right hip total arthroplasty less than a month ago, recent diagnosis of COPD not on home oxygen, paroxysmal A. fib, hypertension Patient comes in today due to progressive exertional dyspnea over the past couple days today her visiting nurse noticed that her oxygen level was down to 88% for which she was sent to the urgent care who confirmed her low oxygen level and suggested that she goes to the ER for evaluation. Patient denies any fevers she reports the highest she reported at home was 99 Fahrenheit, denies any chills denies any loss of taste or smell sensation denies any diarrhea or vomiting but reports occasional nausea, denies any sore throat runny nose denies any sick contacts. Otherwise she was admitted about 2 weeks ago for 10 days after her surgery for pneumonia and UTI and that's when she was diagnosed with COPD. She was discharged with antibiotics and inhalers and oral prednisone. Patient did well initially and then her symptoms worsen again over the past couple days she admits to nonproductive cough and exertional dyspnea upon ambulation otherwise denies any leg muscle tenderness she had some swelling earlier but resolved over the past couple days. She denies any chest pain denies any abdominal pain. In the ED she was found to have an elevated d-dimer for which CT angiogram for chest was performed showed no acute PE however showed progression of possible underlying multilobar pneumonia Patient is compliant with her home meds she's been on Eliquis. Since discharge, she is currently resting in bed on room air. She quit smoking about a month before surgery. She was initially started on Vancomycin and Zosyn for treatment of underlying multilobular pneumonia. She was given DuoNeb's as needed for shortness of breath and wheezing. Coronavirus testing was performed and negative 2. Coronavirus antibody test was negative. Blood cultures are negative. Pulmonology was consulted and recommended discontinuing antibiotics as a risk concerns for aspiration pneumonitis versus pulmonary fibrosis rather than pneumonia. CRP and ESR was elevated. Pro-calcitonin was negative. THOMAS was positive. Swallow eval was performed which was negative. She was started on prednisone and discharged on Medrol Dosepak. Rheumatoid factor was negative. SSA antibody was negative. Anti-Macedo antibody was negative. [employer] antibody was negative. Double stranded DNA antibody was negative. SCL 70 antibody came back positive. Patient was advised to follow-up with rheumatology in the outpatient setting for further diagnostic workup and management. Patient was seen and examined. No acute events overnight. Patient reports improvement in breathing. Currently saturating in the 90s off of oxygen. She denies any chest pain, shortness breath or palpitations. No nausea or vomiting. No fever or chills. Ambulating the hallway without much difficulties. General: [non toxic], [no distress], [appears at stated age] Derm: [warm], [dry] Head: [atraumatic], [normocephalic], [symmetric] Eyes: [EOMI], [no lid lag], [anicteric sclera] Mouth: [no lip lesion], [mucus membranes moist] Cardiovascular: [S1S2 reg], [no murmur], [positive posterior tibial pulse bilateral], Lungs: [Decreased breath sounds bilateral], [no rhonchi, no rales] , [no accessory muscle use] Abdominal: [soft], [ nontender to palpation], [no guarding], [no appreciable organomegaly] Ext: [no gross muscle atrophy], [no edema], [no contractures] Neuro: [no focal neuro deficits] Psych: [Alert], [oriented], [appropriate affect] Acute hypoxic respiratory failure secondary to underlying COVID 19 versus aspiration pneumonitis versus autoimmune disease COPD not on home O2 NSVT Hypertension Paroxysmal atrial fibrillation Recent right hip total arthroplasty As seen on CT chest. Concerns for aspiration pneumonitis or pulmonary fibrosis. CRP and ESR elevated. D-dimer elevated. THOMAS elevated. Pro-calcitonin negative. DS DNA, RF, SSA/SSB negative. + SCL 70 Ab. COVID negative x 2 and Ab negative. Plans: Antibiotics discontinued by pulmonology. Continue Symbicort. Albuterol neb as needed for shortness of breath and wheezing. Medrol dose pack on DC. Supplemental O2 to maintain O2 saturation greater than 92%. Follow Rheumatology and Pulmonology in the outpatient setting. Plans: Management as above. Recent Echo on previous admission. Plans: Continue Metoprolol. Consult Cardiology prior to discharge. BP 157/79. Plans: Continue amlodipine, lisinopril and metoprolol. Monitor vitals, adjust medications if necessary. Plans: Rate controlled. Continue metoprolol. Continue Eliquis. Plans: Continue Eliquis. [Patient admitted for respiratory failure. Initially started on Abx but no suspicion for PNA. Found to be THOMAS + with SCL 70 Ab +. Passed home O2 test. Cardiology consult pending for NSVT on telemetry. Plans on DC home today if cleared by Cardiology. This complex DC took about 45 minutes to complete. She will need to see Pulmonology and Rhematology in clinic. Pertinent Studies: chest x-ray, chest CT Patient Condition at Discharge: Stable Plan - Discharge Summary Discharge Rx Participant: Yes New Discharge Prescriptions: New methylPREDNISolone Dose Pack [Medrol Dose Pack] 4 mg PO DIRECTED #21 package Continue Vitamin B-12(Unknown Dose) 1 tab PO DAILY Acetaminophen Tab [Tylenol] 500 - 1,000 mg PO Q4-6H PRN PRN Reason: Pain amLODIPine [Norvasc] 5 mg PO DAILY Apixaban [Eliquis] 2.5 mg PO BID Atorvastatin [Lipitor] 20 mg PO HS Cholecalciferol [Vitamin D3 (25 Mcg = 1000 Iu)] 2,000 unit PO DAILY Docusate [Colace] 100 mg PO BID PRN PRN Reason: Constipation Fexofenadine HCl [Sushila Allergy] 180 mg PO DAILY FLUoxetine HCL [PROzac] 40 mg PO DAILY FLUoxetine HCL [PROzac] 20 mg PO HS Gabapentin 300 mg PO DAILY Gabapentin 600 mg PO HS HYDROcodone/APAP 10-325MG [Sedley 10-325] 1 - 2 tab PO Q4-6H PRN PRN Reason: Pain Lansoprazole 30 mg PO DAILY lisinopriL 20 mg PO DAILY Melatonin 5 mg PO HS PRN PRN Reason: Insomnia Metoprolol Tartrate [Lopressor] 50 mg PO BID Multivitamins, Thera [Multivitamin (formulary)] 1 tab PO DAILY Ondansetron HCl [Zofran] 8 mg PO TID PRN PRN Reason: Nausea And Vomiting polyethylene glycoL 3350 [Miralax] 17 gm PO DAILY PRN PRN Reason: Constipation Sennosides [Senna] 17.2 mg PO DAILY PRN PRN Reason: Constipation Fluticasone/Vilanterol [Breo Ellipta 100-25 Mcg Inhaler] 1 puff INHALATION RT-DAILY #0 Albuterol Sulfate [Proventil Hfa] 2 puff INHALATION RT-QID PRN PRN Reason: Wheezing Discharge Medication List Acetaminophen Tab [Tylenol] 500 - 1,000 mg PO Q4-6H PRN 07/15/20 [History] Apixaban [Eliquis] 2.5 mg PO BID 07/15/20 [History] Atorvastatin [Lipitor] 20 mg PO HS 07/15/20 [History] Cholecalciferol [Vitamin D3 (25 Mcg = 1000 Iu)] 2,000 unit PO DAILY 07/15/20 [History] Docusate [Colace] 100 mg PO BID PRN 07/15/20 [History] FLUoxetine HCL [PROzac] 20 mg PO HS 07/15/20 [History] FLUoxetine HCL [PROzac] 40 mg PO DAILY 07/15/20 [History] Fexofenadine HCl [Sushila Allergy] 180 mg PO DAILY 07/15/20 [History] Gabapentin 300 mg PO DAILY 07/15/20 [History] Gabapentin 600 mg PO HS 07/15/20 [History] HYDROcodone/APAP 10-325MG [Sedley 10-325] 1 - 2 tab PO Q4-6H PRN 07/15/20 [History] Lansoprazole 30 mg PO DAILY 07/15/20 [History] Melatonin 5 mg PO HS PRN 07/15/20 [History] Metoprolol Tartrate [Lopressor] 50 mg PO BID 07/15/20 [History] Multivitamins, Thera [Multivitamin (formulary)] 1 tab PO DAILY 07/15/20 [History] Ondansetron HCl [Zofran] 8 mg PO TID PRN 07/15/20 [History] Sennosides [Senna] 17.2 mg PO DAILY PRN 07/15/20 [History] Vitamin B-12(Unknown Dose) 1 tab PO DAILY 07/15/20 [History] amLODIPine [Norvasc] 5 mg PO DAILY 07/15/20 [History] lisinopriL 20 mg PO DAILY 07/15/20 [History] polyethylene glycoL 3350 [Miralax] 17 gm PO DAILY PRN 07/15/20 [History] Fluticasone/Vilanterol [Breo Ellipta 100-25 Mcg Inhaler] 1 puff INHALATION RT- DAILY #0 07/18/20 [Rx] Albuterol Sulfate [Proventil Hfa] 2 puff INHALATION RT-QID PRN 08/03/20 [History] methylPREDNISolone Dose Pack [Medrol Dose Pack] 4 mg PO DIRECTED #21 package 08/06/20 [Rx] Follow up Appointment(s)/Referral(s): Sanya Schultz MD [Primary Care Provider] - 1-2 days [facility] [NON-STAFF] - Kaylyn Beaver MD [STAFF PHYSICIAN] - 1 Week Renuka Mesa MD [STAFF PHYSICIAN] - 1 Week Discharge Disposition: HOME SELF-CARE
--- NOTE | 2020-08-06 14:49 | P.CRDCN ---
History of Present Illness Consult date: 08/06/20 Chief complaint: Shortness of breath History of present illness: This is a 74-year-old patient who presented to the hospital with symptoms of shortness of breath. She had a recent hospitalization in June, with pneumonia, it was suspected that she may have coronavirus however she tested negative for that, she did however have patchy bilateral ground glass pulmonary infiltrates noted. Patient was discharged home on antibiotics and readmitted again to the hospital with symptoms of shortness of breath. Her coronavirus testing again came back negative. EKG showed normal sinus rhythm with occasional PACs and nonspecific changes. It was also noted on the monitor that the patient had 1 run of 4 nonsustained ventricular tachycardia. Chest x- ray showed a right lung infiltrate she had an echo performed on July 16 which revealed a normal ejection fraction. Blood pressure 135/60 with a heart rate of 50, afebrile 96% on room air. White blood cell count 5.9, hemoglobin 10.9, platelet count 269. Sodium 141, potassium 4.5, BUN 13, creatinine 0.7. Pro calcitonin 0.7. At the time of my examination today, patient's breathing is stable, hemodynamically she is stable. ANAs screen was negative scleroderma antibodies are positive. Past Medical History Past Medical History: Hyperlipidemia, Hypertension History of Any Multi-Drug Resistant Organisms: None Reported Past Surgical History: Appendectomy, Orthopedic Surgery Additional Past Surgical History / Comment(s): gastric bypass, lumbar fusion (L5) in 2019 Past Anesthesia/Blood Transfusion Reactions: No Reported Reaction Past Psychological History: Depression Smoking Status: Former smoker Past Alcohol Use History: Rare Past Drug Use History: None Reported - Past Family History Father History Unknown: Yes Additional Family Medical History / Comment(s): Patient's Sister. with multiple cancers Medications and Allergies Home Medications Medication Instructions Recorded Confirmed Type Acetaminophen Tab [Tylenol] 500 - 1,000 mg PO Q4-6H PRN 07/15/20 08/03/20 History Apixaban [Eliquis] 2.5 mg PO BID 07/15/20 08/03/20 History Atorvastatin [Lipitor] 20 mg PO HS 07/15/20 08/03/20 History Cholecalciferol [Vitamin D3 (25 2,000 unit PO DAILY 07/15/20 08/03/20 History Mcg = 1000 Iu)] Docusate [Colace] 100 mg PO BID PRN 07/15/20 08/03/20 History FLUoxetine HCL [PROzac] 20 mg PO HS 07/15/20 08/03/20 History FLUoxetine HCL [PROzac] 40 mg PO DAILY 07/15/20 08/03/20 History Fexofenadine HCl [Sushila Allergy] 180 mg PO DAILY 07/15/20 08/03/20 History Gabapentin 300 mg PO DAILY 07/15/20 08/03/20 History Gabapentin 600 mg PO HS 07/15/20 08/03/20 History HYDROcodone/APAP 10-325MG [[place] 1 - 2 tab PO Q4-6H PRN 07/15/20 08/03/20 History 10-325] Lansoprazole 30 mg PO DAILY 07/15/20 08/03/20 History Melatonin 5 mg PO HS PRN 07/15/20 08/03/20 History Metoprolol Tartrate [Lopressor] 50 mg PO BID 07/15/20 08/03/20 History Multivitamins, Thera [Multivitamin 1 tab PO DAILY 07/15/20 08/03/20 History (formulary)] Ondansetron HCl [Zofran] 8 mg PO TID PRN 07/15/20 08/03/20 History Sennosides [Senna] 17.2 mg PO DAILY PRN 07/15/20 08/03/20 History Vitamin B-12(Unknown Dose) 1 tab PO DAILY 07/15/20 08/03/20 History amLODIPine [Norvasc] 5 mg PO DAILY 07/15/20 08/03/20 History lisinopriL 20 mg PO DAILY 07/15/20 08/03/20 History polyethylene glycoL 3350 [Miralax] 17 gm PO DAILY PRN 07/15/20 08/03/20 History Fluticasone/Vilanterol [Breo 1 puff INHALATION RT-DAILY #0 07/18/20 08/03/20 Rx Ellipta 100-25 Mcg Inhaler] Albuterol Sulfate [Proventil Hfa] 2 puff INHALATION RT-QID PRN 08/03/20 08/03/20 History methylPREDNISolone Dose Pack 4 mg PO DIRECTED #21 package 08/06/20 Rx [Medrol Dose Pack] Allergies Allergy/AdvReac Type Severity Reaction Status Date / Time ciprofloxacin [From Cipro] Allergy Unknown Verified 08/03/20 16:46 clarithromycin [From Biaxin] Allergy Unknown Verified 08/03/20 16:46 ibuprofen [From Motrin] Allergy Unknown Verified 08/03/20 16:46 Sulfa (Sulfonamide Allergy Unknown Verified 08/03/20 16:46 Antibiotics) NSAIDS (Non-Steroidal AdvReac Nausea & Verified 08/03/20 16:46 Anti-Inflamma Vomiting & Diarrhea Physical Exam Vitals: Vital Signs Temp Pulse Resp BP Pulse Ox 08/06/20 08:00 20 08/06/20 07:00 97.8 F 55 L 135/68 96 08/06/20 01:38 97.8 F 66 20 137/81 96 08/06/20 00:00 20 08/05/20 20:00 71 20 08/05/20 18:55 98.7 F 71 22 155/74 96 08/05/20 16:28 93 L 08/05/20 16:00 16 08/05/20 15:00 98.4 F 69 20 157/79 94 L Intake and Output 08/05/20 08/06/20 08/06/20 22:59 06:59 14:59 Intake Total 200 250 Balance 200 250 Intake: Oral 200 250 Other: # Voids 2 3 # Bowel Movements 1 GENERAL EXAM: Alert, very pleasant, 74-year-old female patient on room air, with pulse ox of 96% comfortable in no apparent distress. HEAD: Normocephalic/atraumatic. EYES: Normal reaction of pupils, equal size. Conjunctiva pink, sclera white. NOSE: Clear with pink turbinates. THROAT: No erythema or exudates. NECK: No masses, no JVD, no thyroid enlargement, no adenopathy. CHEST: No chest wall deformity. Symmetrical expansion. LUNGS: Equal air entry with no crackles, wheeze, rhonchi or dullness. CVS: Regular rate and rhythm, normal S1 and S2, no gallops, no murmurs, no rubs ABDOMEN: Soft, nontender. No hepatosplenomegaly, normal bowel sounds, no guarding or rigidity. EXTREMITIES: No clubbing, no edema, no cyanosis, 2+ pulses and upper and lower extremities. MUSCULOSKELETAL: Muscle strength and tone normal. SPINE: No scoliosis or deformity SKIN: No rashes CENTRAL NERVOUS SYSTEM: Alert and oriented -3. No focal deficits, tone is normal in all 4 extremities. PSYCHIATRIC: Alert and oriented -3. Appropriate affect. Intact judgment and insight. Results 08/05/20 06:29 08/06/20 12:46 Comprehensive Metabolic Panel 08/06/20 Range/Units 12:46 Sodium 139 (137-145) mmol/L Potassium 4.3 (3.5-5.1) mmol/L Chloride 108 H (98-107) mmol/L Carbon Dioxide 23 (22-30) mmol/L BUN 17 (7-17) mg/dL Creatinine 0.84 (0.52-1.04) mg/dL Glucose 108 H (74-99) mg/dL Calcium 9.1 (8.4-10.2) mg/dL Current Medications Generic Name Dose Route Start Last Admin Trade Name Freq PRN Reason Stop Dose Admin Hydrocodone Bitart/Acetaminophen 1 each 08/03/20 18:11 08/06/20 11:19 Hydrocodone/Apap 10-325mg 1 Each Tab PO 1 each Q6HR PRN Administration Pain Albuterol Sulfate 2.5 mg 08/03/20 18:11 08/04/20 08:42 Albuterol Nebulized 2.5 Mg/3 Ml INHALATION 2.5 mg RT-QID PRN Administration Wheezing Amlodipine Besylate 5 mg 08/04/20 09:00 08/06/20 08:18 Amlodipine 5 Mg Tab PO 5 mg DAILY SAMEEAR Administration Apixaban 2.5 mg 08/03/20 21:00 08/06/20 08:18 Apixaban 2.5 Mg Tablet PO 2.5 mg BID SAMEERA Administration Atorvastatin Calcium 20 mg 08/03/20 21:00 08/05/20 20:31 Atorvastatin 20 Mg Tab PO 20 mg HS SAMEERA Administration Budesonide/Formoterol Fumarate 2 puff 08/04/20 08:00 08/06/20 09:10 Symbicort 80-4.5 Mcg Inhaler INHALATION 2 puff RT-BID SAMEERA Administration Cholecalciferol 2,000 unit 08/04/20 09:00 08/06/20 08:18 Cholecalciferol 1,000 Unit Tab PO 2,000 unit DAILY SAMEERA Administration Cyanocobalamin 500 mcg 08/04/20 09:00 08/06/20 08:18 Cyanocobalamin 500 Mcg Tab PO 500 mcg DAILY SAMEERA Administration Docusate Sodium 100 mg 10/06/20 18:11 Docusate 100 Mg Cap PO BID PRN Constipation Fluoxetine HCl 40 mg 08/04/20 09:00 08/06/20 08:18 Fluoxetine Hcl 20 Mg Cap PO 40 mg DAILY SAMEERA Administration Fluoxetine HCl 20 mg 08/03/20 21:00 08/05/20 20:32 Fluoxetine Hcl 20 Mg Cap PO 20 mg HS SAMEERA Administration Gabapentin 300 mg 08/04/20 09:00 08/06/20 08:18 Gabapentin 300 Mg Cap PO 300 mg DAILY SAMEERA Administration Gabapentin 600 mg 08/03/20 21:00 08/05/20 20:32 Gabapentin 300 Mg Cap PO 600 mg HS SAMEERA Administration Lisinopril 20 mg 08/04/20 09:00 08/06/20 08:18 Lisinopril 20 Mg Tab PO 20 mg DAILY SAMEERA Administration Loratadine 10 mg 08/04/20 09:00 08/06/20 08:31 Loratadine 10 Mg Tab PO Not Given DAILY SAMEERA Melatonin 5 mg 08/03/20 18:11 08/05/20 23:07 Melatonin 5 Mg Tablet PO 5 mg HS PRN Administration Insomnia Metoprolol Tartrate 50 mg 08/03/20 21:00 08/06/20 08:18 Metoprolol Tartrate 50 Mg Tab PO 50 mg BID SAMEERA Administration Multivitamins 1 each 08/04/20 09:00 08/06/20 08:18 Multivitamins, Thera 1 Each Tab PO 1 each DAILY SAMEERA Administration Naloxone HCl 0.2 mg 08/03/20 18:09 Naloxone 0.4 Mg/Ml 1 Ml Vial IV Q2M PRN Opioid Reversal Pantoprazole Sodium 40 mg 08/04/20 07:30 08/06/20 08:18 Pantoprazole 40 Mg Tablet PO 40 mg [id number] SAMEERA Administration Polyethylene Glycol 17 gm 08/03/20 18:11 Polyethylene Glycol 3350 17 Gm Powd.Pack PO DAILY PRN Constipation Prednisone 40 mg 08/04/20 11:00 08/06/20 08:19 Prednisone 20 Mg Tab PO 40 mg DAILY SAMEERA Administration Senna 17.2 mg 08/03/20 18:11 Sennosides 8.6 Mg Tab PO DAILY PRN Constipation Intake and Output 08/05/20 08/06/20 08/06/20 22:59 06:59 14:59 Intake Total 200 250 Balance 200 250 Intake: Oral 200 250 Other: # Voids 2 3 # Bowel Movements 1 08/05/20 06:29 08/06/20 12:46 EKG Interpretations (text) EKG showed normal sinus rhythm with occasional PACs. Assessment and Plan Plan: Assessment and plan #1 bilateral groundglass pulmonary infiltrates, knott virus negative. Recently treated for pneumonia. Sclera derma screen did come back positive #2 run of 4 nonsustained ventricular tachycardia #3 hypertension #4 hyperlipidemia #5 history of gastric bypass surgery #6 former smoker #7 COPD #8 recent hip surgery Plan From cardiology's perspective patient may be able to be discharged home. Her echo performed in June showed an ejection fraction of greater than 55%. She will be staying here at her sister's house for the next couple of days and then moving back home to the [place] area. She has been advised to set up follow-up with cardiology there, as per her request. DNP note has been reviewed, I agree with a documented findings and plan of care. Patient was seen and examined.
--- NOTE | 2020-08-10 09:45 | CDI ---
Documentation Clarification Form Date: 08/10/2020 08:53:27 AM From: Angelique Dunne RN CCDS Admit Date: 08/03/2020 06:09:00 PM Patient Name: Lilo Sellers Visit Number: [id number] Discharge Date: 08/06/2020 04:17:00 PM ATTENTION: The Clinical Documentation Specialists (CDI) and [facility] Coding Staff appreciate your assistance in clarifying documentation. Please respond to the clarification below the line at the bottom and electronically sign. The CDI & [facility] Coding staff will review the response and follow-up if needed. Please note: Queries are made part of the Legal Health Record. If you have any questions, please contact the author of this message via ITS. Dr. Hua Myers Acute hypoxic respiratory failure secondary to underlying COVID 19 versus Aspiration pneumonitis versus Autoimmune disease is documented in the Discharge Summary 08/06/20 Patient history/risk factors: 74-year-old female presents to the ED with dyspnea, home care nurse observed oxygen level was down to 88%. Medical history recent admission for pneumonia, uti and diagnosed with COPD ten days after right hip surgery. Medical history former smoker, COPD, Paroxsymal Afib and HTN, Clinical Indicators Shortness of breath especially with exertion, Hypoxia and mild nonproductive cough. 08/03 CTA: Intervalprogression of multifocal multilobar right-sided groundglass opacities worrisome for multilobar pneumonia. 08/03 CXR: Cardiomegaly and chronic changes with persistent right upper lung increased opacity could reflect residual acute infiltrate 08/03 Labs: D-dimer 0.81; Na 136, LDH 796, CRP 79.2, Procalcitonin 0.07, Viral Panel: 08/03 IQBAL not detected, 08/05 COV2AB non-reactive. 08/03 Vital Signs: B/P: 142/69; HR: 68; Temp: 98.9; RR: 18; SpO2 94% Room Air Treatment: Vancomycin Ivpb d/c 08/04; Prednisone po daily d/c 08/06; 08/03 Zosyn Ivpb d/c 08/04; Pulmonary Progress Note 08/06: The patients pervious coronavirus Covid 19 testing was negative. Repeat Covid 19 testing was negative. Covid Antibody testing negative. Scleroderma screen did come back positive. In order to capture the severity of condition, please clarify if the above treatment/clinical indicators signify: COVID-19 False negative, treating for COVID 19 Infection. COVID-19 ruled out Other, please specify Unable to determine (Last Form Revision: December 2019) covid ruled out MTDD
--- NOTE | 2020-08-10 10:04 | CDI ---
Documentation Clarification Form Date: 08/10/2020 09:45:41 AM From: Angelique Dunne RN CCDS Admit Date: 08/03/2020 06:09:00 PM Patient Name: Lilo Sellers Visit Number: [id number] Discharge Date: 08/06/2020 04:17:00 PM ATTENTION: The Clinical Documentation Specialists (CDI) and [facility] Coding Staff appreciate your assistance in clarifying documentation. Please respond to the clarification below the line at the bottom and electronically sign. The CDI & [facility] Coding staff will review the response and follow-up if needed. Please note: Queries are made part of the Legal Health Record. If you have any questions, please contact the author of this message via ITS. Dr. Hua Myers :Concerns for Aspiration pneumonitis is documented in your Discharge Summary 08/06/20 Patient history/risk factors: 74-year-old female presents to the ED with dyspnea, home care nurse observed oxygen level was down to 88%. Medical history recent admission for pneumonia, uti and diagnosed with COPD ten days after right hip surgery. Medical history former smoker, COPD, Paroxsymal Afib and HTN, Clinical Indicators Shortness of breath especially with exertion, Hypoxia and mild nonproductive cough. 08/03 CTA: Intervalprogression of multifocal multilobar right sided groundglass opacities worrisome for multilobar pneumonia. 08/03 CXR: Cardiomegaly and chronic changes with persistent right upper lung increased opacity could reflect residual acute infiltrate 08/03 Labs: D-dimer 0.81; Na 136, LDH 796, CRP 79.2, Procalcitonin 0.07, Viral Panel: 08/03 IQBAL not detected, 08/05 COV2AB non-reactive. 08/03 Vital Signs: B/P: 142/69; HR: 68; Temp: 98.9; RR: 18; SpO2 94% Room Air 08/03 H&P Lung assessment: Good breath sounds bilaterally except for small area over the right upper lung with bronchial breathing. Normal respiratory effort, no accessory muscle use. Treatment: Vancomycin Ivpb d/c 08/04; Prednisone po daily d/c 08/06; 08/03 Zosyn Ivpb d/c 08/04; Breathing Tx: 08/03 Ventolin d/c 08/04, Albuterol x1, 08/04 Symbicort d/c 08/06 In order to capture the severity of condition, please clarify if the above treatment/clinical indicators signify: Aspiration Pneumonia Ruled In Aspiration Pneumonia Ruled Out Other, please specify Unable to determine (Last Revision: January 2018) aspiration ruled out MTDD
--- NOTE | 2020-08-16 21:48 | CDI ---
Documentation Clarification Form Date: 08/17/20 From: Raymond Du Phone: If you have a question about this query, please contact Kary Soto, [employer] at [phone] between 8am and 5pm. Admit Date: 08/03/2020 Discharge Date:08/06/2020 Patient Name: Lilo Sellers Visit Number: [id number] ATTENTION: The Clinical Documentation Specialists (CDI) and [facility] Coding Staff appreciate your assistance in clarifying documentation. Please respond to the clarification below the line at the bottom and electronically sign. The CDI & [facility] Coding staff will review the response and follow-up if needed. Please note: Queries are made part of the Legal Health Record. If you have any questions, please contact the author of this message via ITS. Dear Hua Rodrigues MD., The patients principal diagnosis has not been clearly identified and requires clarification. Patient history/risk factors: 74-year-old female presents to the ED with dyspnea, home care nurse observed oxygen level was down to 88%. Medical history recent admission for pneumonia, uti and diagnosed with COPD ten days after right hip surgery.Medical history former smoker, COPD, Paroxsymal Afib and HTN, Clinical Indicators Shortness of breath especially with exertion, Hypoxia and mild nonproductive cough. 08/03 Vital Signs: B/P: 142/69; HR: 68; Temp: 98.9; RR: 18; SpO2 94% Room Air Zosyn Ivpb d/c 08/04; Breathing Tx: 08/03 Ventolin d/c 08/04, Albuterol x1, 08/04 Symbicort d/c 08/06 Plans: Antibiotics discontinued by pulmonology.Continue Symbicort.Albuterol Covid ruled out and Aspiration pneumonia also ruled out. In your professional opinion, can you please clarify which diagnosis, after study, accounted for the patients presenting symptoms and was the reason chiefly responsible for the admission? Acute respiratory failure secondary to Underlying pneumonia Acute respiratory failure secondary to underlying COPD Other, Please Specify Acute respiratory failure secondary to underlying COPD MTDD
== END 2020-08-06 16:17 | disposition home or self-care (01) | DRG 190 ==
LOC: EC 15:21 → 4SSUR 18:09
PROVIDERS: ADMIT Family Medicine; ATTEND Family Medicine
DX: J44.9 Chronic obstructive pulmonary disease, unspecified (principal); J96.01 Acute respiratory failure with hypoxia; N39.0 Urinary tract infection, site not specified; I47.2 Ventricular tachycardia; J18.0 Bronchopneumonia, unspecified organism; F32.9 Major depressive disorder, single episode, unspecified; E78.5 Hyperlipidemia, unspecified; I10 Essential (primary) hypertension; I48.0 Paroxysmal atrial fibrillation; Z20.828 Contact with and (suspected) exposure to other viral communicable diseases; Z96.641 Presence of right artificial hip joint; K21.9 Gastro-esophageal reflux disease without esophagitis; Z79.01 Long term (current) use of anticoagulants; Z79.899 Other long term (current) drug therapy; Z88.6 Allergy status to analgesic agent; Z88.1 Allergy status to other antibiotic agents; Z88.2 Allergy status to sulfonamides; Z90.49 Acquired absence of other specified parts of digestive tract; Z98.890 Other specified postprocedural states; Z98.1 Arthrodesis status; Z87.891 Personal history of nicotine dependence; Z80.9 Family history of malignant neoplasm, unspecified; Z98.84 Bariatric surgery status
CPT/HCPCS: 36415; 71046; 71275; 80048; 80053; 82164; 82728; 83605; 83615; 83735; 83880; 84145; 84484; 85025; 85379; 85610; 85652; 85730; 86038; 86039; 86140; 86225; 86235; 86431; 86769; 87040; 93005; 94640; 96365; 99285